=== PATIENT | male | born 1960 | race Hispanic/Latino ===

== ENCOUNTER 2016-10-13 22:41 | Inpatient (IN) | payer MEDICARE, OTHER ==
[2016-10-13] MEDS ORDERED: Sodium Chloride 0.9% 1,000 ML IV ONE (22:54)
[2016-10-13 23:00] LABS: ABG ALLEN TEST POS; ABG MECHANICAL RATE 16; ARTERIAL BLOOD HGB O2 SAT 95.9 % (95.0-98.0); ATERIAL BLOOD GAS PEEP 5; CARBOXYHEMOGLOBIN 1.7 % (0.5-1.5); DRAW SITE RBA; HHB 1.6 % (0.0-5.0); METHEMOGLOBIN 0.7 % (0.0-3.0)
[2016-10-13 23:05] LABS: BASO # 0.1 K/uL (0.0-0.2); BASO % 0.4 % (0.0-2.0); EOS # 0.1 K/uL (0.0-0.7); EOS % 0.4 % (0.0-4.0); HEMATOCRIT 26.1 % (35.0-51.0); LYMPH # 1.3 K/uL (1.0-4.3); LYMPH % 6.3 % (20.0-40.0); MEAN CELL VOLUME 93.3 fL (80.0-94.0); MEAN CORPUSCULAR HEMOGLOBIN 27.4 pg (27.0-31.0); MEAN CORPUSCULAR HGB CONC 29.4 g/dL (33.0-37.0); MEAN PLATELET VOLUME 7.5 fL (7.2-11.7); MONO # 0.1 K/uL (0.0-0.8); MONO % 0.6 % (0.0-10.0); PLATELET COUNT 229 K/uL (130-400); RED CELL DISTRIBUTION WIDTH 19.7 % (11.5-14.5)
[2016-10-13 23:13] LABS: INR 1.6
[2016-10-13 23:24] LABS: CHLORIDE 98 mmol/L (98-107)
[2016-10-13 23:25] LABS: POTASSIUM 4.2 mmol/L (3.6-5.2); SODIUM 137 mmol/L (132-148)
[2016-10-13 23:27] LABS: ALB/GLOB RATIO 0.6 (1.0-2.1); ALKALINE PHOSPHATASE 165 U/L (38-126); ALT/SGPT 25 U/L (21-72); AST/SGOT 61 U/L (17-59); BILIRUBIN,TOTAL 0.7 mg/dL (0.2-1.3); BLOOD UREA NITROGEN 59 mg/dL (9-20); CARBON DIOXIDE 17 mmol/L (22-30); GFR AFRICAN-AMERICAN 11; GLUCOSE,RANDOM 85 mg/dL (75-110); TOTAL PROTEIN 5.9 g/dL (6.3-8.3)
[2016-10-13 23:34] LABS: METAMYELOCYTE 1 % (0-0); MYELOCYTE 2 % (0-0); NEUTROPHIL 61 % (50-75); TOTAL CELLS COUNTED 100
[2016-10-13] MEDS ORDERED: Piperacillin/Tazobact 3.375 gm 100 ML IV STA (23:40)
[2016-10-13 23:48] LABS: CHOLESTEROL < 50 mg/dL (0-199)
--- NOTE | 2016-10-13 23:49 | C.PDOC ---
History Of Present Illness 56 y/o male presents to ER via ALS from the [facility] status post cardiac arrest. Patient with history of septic foot (R > L), planning amputation with Dr. Clement. Pt found by [facility] staff unresponsive after fall, asystolic. CPR performed for 15 mins by [facility] staff. ALS arrived, following protocols, regained stable rhythm without shocking. In ER patient unconscious, unresponsive, and pale, with ET tube in place. Chief Complaint (Nursing): Cardiac Arrest History Per: EMS Reason For Code Blue: Full Arrest Circumstances: Brought To ED By EMS Arrest Witnessed By: Other ([facility] staff) CPR Initiated Prior To MD Arrival?: Yes Down-Time Before ACLS: Mins (15) Treatment Initiated Prior To MD Arrival: Yes: CPR, Intubation, ACLS Medication Initiation - Initial Findings Mentation: Unresponsive Pulse: None Past Medical History Reviewed: Historical Data, Nursing Documentation, Vital Signs Vital Signs: Last Vital Signs Temp 97.7 F 10/14/16 23:00 Pulse 48 L 10/14/16 23:50 Resp 0 L 10/15/16 00:10 BP 64/29 L 10/14/16 23:43 Pulse Ox 39 L 10/14/16 23:50 - Medical History PMH: HTN, End Stage Renal Disease Surgical History: CABG - [facility] Procedures DIALYSIS ARTERIOVENOSTOM (03/16/13) INSERTION OF ENDOTRACHEAL AIRWAY INTO TRACHEA, VIA OPENING (10/13/16) RESPIRATORY VENTILATION, 24-96 CONSECUTIVE HOURS (10/13/16) Family History: States: Unknown Family Hx - Social History Hx Alcohol Use: No Hx Substance Use: No - Immunization History Hx Tetanus Toxoid Vaccination: No Hx Influenza Vaccination: No Hx Pneumococcal Vaccination: No Review Of Systems Review Of Systems: ROS cannot be obtained secondary to pt's inabilty to answer questions. Physical Exam - Physical Exam Appears: Other (unconscious, unresponsive) Skin: Warm, Dry, Pale, Mottled Head: Atraumatic Eye(s): bilateral: Other (fixated pupils) Chest: Symmetrical, Other (contusion and bleeding of the sternum, probably related to Yared device and compressions) Cardiovascular: Rhythm Regular Respiratory: No Rales, No Rhonchi, No Wheezing, Other (ET tube, 7.0 at 22cm at lips, good lung sounds bilaterally) Gastrointestinal/Abdominal: Soft, No Distention Extremity: Other (Lower extremities: healed surgical scars. Bilateral feet: large, gaping, foul-smelling wounds. ) ED Course And Treatment - Laboratory Results Result Diagrams: 10/14/16 21:24 10/14/16 21:24 Lab Interpretation: Abnormal (+ bandemia, ABG acidotic) ECG: Interpreted By Me ECG Rhythm: Sinus Rhythm ECG Interpretation: Normal Rate From EC O2 Sat by Pulse Oximetry: 100 Pulse Ox Interpretation: Normal - Radiology CXR: Interpreted by Me CXR Interpretation: Yes: Infiltrates (RUL/RLL pna vs contusions from CPR, good ET tube, R subclavian central line.) - CT Scan/US CT Head Other Rad Studies (CT/US): Read By Radiologist, Radiology Report Reviewed CT/US Interpretation: IMPRESSION: Status post craniectomy with underlying encephalomalacia. Please correlate with history, this study. does not exclude mass noting extensive edema in this area, cannot exclude further that some of this. edema may be related to the present acute trauma. Anasarca, and noting specifically diffuse edema of the bilateral intraconal fat. Nasal fractures with no evident fracture of the calvarium or orbits Reevaluation Time: 23:46 (deterioating BP, acidotic, vanco/zosyn and Levophed started, planning mckay scan, ventilatory resp rate increased) - Physician Consult Information Outcome Of Conversation: [id number]: d/w Dr. Warren- PMD- ok to ICU. 2300: d/w Dr. Kuhn- ICU Attending-@ bedside. ok to ICU Medical Decision Making Medical Decision Making: sepsis, probably from R>L foot infections. now s/p cardiac arrest, lung contusions, b/l foot infections intubated on pressors/broad spectrum ABX, to ICU HIGH risk of mortality Disposition Doctor Will See Patient In The: Hospital Counseled Patient/Family Regarding: Studies Performed, Diagnosis - Disposition Disposition: HOSPITALIZED Disposition Time: 23:49 Condition: CRITICAL - Clinical Impression Clinical Impression: Cardiac arrest, Sepsis Critical Care Time - Critical Care Note Total Time (in mins): 90 Documented critical care: time excludes all time spent performing seperately billable procedures. - Scribe Statement The provider has reviewed the documentation as recorded by the Frances Ledezma Provider Scribe Attestation: All medical record entries made by the Scribe were at my direction and personally dictated by me. I have reviewed the chart and agree that the record accurately reflects my personal performance of the history, physical exam, medical decision making, and the department course for this patient. I have also personally directed, reviewed, and agree with the discharge instructions and disposition.
--- NOTE | 2016-10-14 00:20 | CP.PCM.CON ---
History of Present Illness - History of Present Illness History of Present Illness: 56 M form [place], ESRD on HD MWF, CAD s/p CABG, lt arm av fistula, right permacath, PAD with infected right charcot foot, left foot unstageble eschar, IDDM, arrested at [place], was seen about a min prior to arrest at [place]. About 15 min of CPR at [facility], 2-3 time arrest on the route, needing 6 epinephrine. In ER breathing over vent, no cornea/conjuctival reflex, metabolic acidosis, rul infilterate, intially normotensive then hypotensive, liquid diarrhea noticed. EKG old anterio -septal infarct. As per [place] transfer sheet was alert and oriented, could feed himself, difficulty in ambulation, due to feet infection. PMH as above PSH as above Meds reviewed insulin 3utid, coreg, zemplar, percocet, oxycodone, prn lactulose , procirt, diflucan abx not listed but possible during hd Allergies not listed Family history not available Social from [place], details not available Review of Systems - Review of Systems All systems: reviewed and no additional remarkable complaints except (HPI) Past Patient History - Infectious Disease Hx of Infectious Diseases: None - Past Social History Smoking Status: Unknown If Ever Smoked - CARDIAC Hx Hypertension: Yes - RENAL Hx Dialysis: Yes Type of Dialysis Access: left AV shunt Date of Last Dialysis Treatment: 10/04/16 - ENDOCRINE/METABOLIC Hx Diabetes Mellitus Type 1: Yes - MUSCULOSKELETAL/RHEUMATOLOGICAL Hx Osteomyelitis: Yes - PSYCHIATRIC Hx Substance Use: No - SURGICAL HISTORY Hx Coronary Artery Bypass Graft: Yes - ANESTHESIA Hx Anesthesia: Yes Hx Anesthesia Reactions: No Meds Allergies/Adverse Reactions: Allergies Allergy/AdvReac Type Severity Reaction Status Date / Time No Known Allergies Allergy Verified 10/13/16 22:58 - Medications Medications: Current Medications Norepinephrine Bitartrate 8 mg (/ Sodium Chloride) 258 mls @ 7.74 mls/hr IV .Q24H STA; 4 MCG/MIN PRN Reason: Protocol Stop: 10/14/16 23:34 Piperacillin Sod/Tazobactam Sod (Zosyn 3.375 In Ns 100ml) 100 mls @ 200 mls/hr IV STAT STA Stop: 10/14/16 00:09 Vancomycin HCl (Vancomycin 1gm In Normal Saline Addvantage) 250 mls @ 166.667 mls/hr IV STAT INGA Physical Exam - Additional Findings Additional findings: * HEENT no trauma, pupils fixed, no corneal/ conjuctival reflex, ET tube * Neck Supple * Chest breathing over vent 28/20, a/e b/l, right permacath * CVS Regular sinus, no murmur, midline scar * PA mild distension, soft, sub cut hematoma in luq noticed * Ext scar or previous baron, bleeding/oozing, wet gangrenous right foot planter aspect, with lax charcot ankle without support * left heal unstagable eschar * SYNTHET[employer] P[employer]ER breathing over vent, unresponsive, no puplilary/corneal reflex * Skin normal turgor Results - Vital Signs Recent Vital Signs: Last Vital Signs Temp 95 F L 10/13/16 23:05 Pulse 72 10/13/16 23:36 Resp 22 10/13/16 23:36 BP 88/56 L 10/13/16 23:36 Pulse Ox 100 10/13/16 23:56 - Labs Result Diagrams: 10/13/16 00:09 10/13/16 22:54 Labs: Laboratory Results - last 24 hr 10/13/16 10/13/16 10/13/16 00:09 00:09 22:48 WBC 21.0 H RBC 2.80 L Hgb 7.7 L Hct 26.1 L MCV 93.3 MCH 27.4 MCHC 29.4 L RDW 19.7 H Plt Count 229 MPV 7.5 Neut % (Auto) 92.3 H Lymph % (Auto) 6.3 L [place] % (Auto) 0.6 Eos % (Auto) 0.4 Baso % (Auto) 0.4 Neut # 19.3 H Lymph # 1.3 [place] # 0.1 Eos # 0.1 Baso # 0.1 Neutrophils % (Manual) 61 Band Neutrophils % 26 H* Lymphocytes % (Manual) 8 L Monocytes % (Manual) 2 Metamyelocytes % 1 H Myelocytes % 2 H Platelet Estimate Normal Hypochromasia (manual) Slight Poikilocytosis (manual Slight Anisocytosis (manual) Slight Jannet Cells Slight PT 17.8 H INR 1.6 APTT 47 H Puncture Site pCO2 pO2 HCO3 ABG pH ABG Total CO2 ABG O2 Saturation ABG Base Excess ABG Hemoglobin ABG Carboxyhemoglobin POC ABG HHb (Measured) ABG Methemoglobin Eusebio Test A-a O2 Difference Respiratory Index Hgb O2 Saturation Mechanical Rate FiO2 Tidal Volume PEEP Crit Value Called To Crit Value Called By Crit Value Read Back Blood Gas Notified Time Sodium Potassium Chloride Carbon Dioxide Anion Gap BUN Creatinine Est GFR ( Amer) Est GFR (Non-Af Amer) POC Glucose (mg/dL) 88 Random Glucose Calcium Total Bilirubin AST ALT Alkaline Phosphatase Total Creatine Kinase CK-MB (Mass) Troponin I Troponin I, Quant Total Protein Albumin Globulin Albumin/Globulin Ratio Triglycerides Cholesterol LDL Cholesterol Direct HDL Cholesterol Blood Type Antibody Screen 10/13/16 10/13/16 10/13/16 22:54 22:55 23:01 WBC RBC Hgb Hct MCV MCH MCHC RDW Plt Count MPV Neut % (Auto) Lymph % (Auto) [place] % (Auto) Eos % (Auto) Baso % (Auto) Neut # Lymph # [place] # Eos # Baso # Neutrophils % (Manual) Band Neutrophils % Lymphocytes % (Manual) Monocytes % (Manual) Metamyelocytes % Myelocytes % Platelet Estimate Hypochromasia (manual) Poikilocytosis (manual Anisocytosis (manual) Jannet Cells PT INR APTT Puncture Site Rba pCO2 59 H pO2 247 H HCO3 12.1 L ABG pH 6.99 L* ABG Total CO2 16.0 L ABG O2 Saturation 98.4 H ABG Base Excess -16.4 L ABG Hemoglobin 8.0 L ABG Carboxyhemoglobin 1.7 H POC ABG HHb (Measured) 1.6 ABG Methemoglobin 0.7 Eusebio Test Pos A-a O2 Difference 392.0 Respiratory Index 1.6 Hgb O2 Saturation 95.9 Mechanical Rate 16 FiO2 100.0 Tidal Volume 500 PEEP 5 Crit Value Called To Dr bateman Crit Value Called By [facility] [place] Crit Value Read Back Y Blood Gas Notified Time 2300 Sodium 137 Potassium 4.2 Chloride 98 Carbon Dioxide 17 L Anion Gap 26 H BUN 59 H Creatinine 6.6 H Est GFR ( Amer) 11 Est GFR (Non-Af Amer) 9 POC Glucose (mg/dL) Random Glucose 85 Calcium 8.0 L Total Bilirubin 0.7 AST 61 H ALT 25 Alkaline Phosphatase 165 H Total Creatine Kinase 34 L CK-MB (Mass) 4.31 H Troponin I < 0.0120 Troponin I, Quant < 0.0120 Total Protein 5.9 L Albumin 2.3 L Globulin 3.7 Albumin/Globulin Ratio 0.6 L Triglycerides 56 Cholesterol < 50 LDL Cholesterol Direct < 30 HDL Cholesterol 14 L Blood Type O POSITIVE Antibody Screen Negative Assessment & Plan - Assessment and Plan (Free Text) Assessment: * Cardiac arrest at [place], clinically signs of anoxia, unclear etiology * ESRD on HD MWF * CAD, CABG, PAD * Infected right heal wet gangrene vs om, vs soft tissue infn, charcot joint, left unstagable eschar * RUL pna * Hypotensive being bolused * Anemia of chronic disease/ESRD Plan: * [facility] * If no internal bleeding contraindications then hypothermia as tolerated * Broad spectrum abx * HD * Monitoring and correcting electrolyte abnormalitied * GI/DVT prophylaxis * See orders for detail.
[2016-10-14] MEDS ORDERED: Piperacillin/Tazobact 3.375 gm 100 ML IVPB ONE (00:25)
--- NOTE | 2016-10-14 01:27 | CT ---
EXAM: CT Head Without Intravenous Contrast CLINICAL HISTORY: 56 years old, male; Injury or trauma; Fall; Initial encounter; Blunt trauma (contusions or hematomas); Consciousness not specified; Additional info: Fall, cardiac arrest TECHNIQUE: Axial computed tomography images of the head/brain without intravenous contrast. This CT exam was performed using one or more of the following dose reduction techniques: automated exposure control, adjustment of the mA and/or kV according to patient size, and/or use of iterative reconstruction technique. Coronal and sagittal reformatted images were created and reviewed. EXAM DATE/TIME: Exam ordered 10/13/2016 10:55 PM COMPARISON: No relevant prior studies available. FINDINGS: Brain: There is a defect in the left high parietal region series 4 image 58 favored to be a craniotomy/craniectomy site, see for example coronal image 202 and noting underlying encephalomalacia. There is prominent encephalomalacia adjacent to the described bony defect and which may reflect prior procedure with additional abnormality such as mass or post traumatic change in this area not excluded on the present study. No hemorrhage. Noting extensive white matter changes, cannot exclude either chronic or acute edema in this area. Lacunar infarct left basal ganglia. Noting history of cardiac arrest there are no specific findings that would confirm acute anoxic injury. Ventricles: Unremarkable. No ventriculomegaly. Bones/joints: Comminuted fractures of the right nasal bone. The zygomatic arches intact. This study does not evaluate the cervical spine. There are no findings of acute orbital fracture. Included portions of the mandible show no fractures. Soft tissues: There is extracranial soft tissue swelling at the vertex. There is bilaterally increased attenuation of the intraconal fat of the orbits, this is symmetric, close clinical correlation is recommended. This may be related to the overall severe soft tissue swelling and anasarca.There is marked diffuse edema of the extracranial soft tissues, noting further vascular calcifications some of which may be venous rather than arterial, and noting in addition bilateral diffuse edema affecting also the intraconal fat. Vasculature: heavy atherosclerosis of the vertebral and internal carotid arteries. There is marked diffuse edema of the extracranial soft tissues, noting further vascular calcifications some of which may be venous rather than arterial, and noting in addition bilateral diffuse edema affecting the intraconal fat. Sinuses: Small amount of mucoperiosteal thickening in the bilateral maxillary sinuses. Mastoid air cells: Mastoid air cells are clear. Other findings: Patient is intubated. IMPRESSION: Status post craniectomy with underlying encephalomalacia. Please correlate with history, this study does not exclude mass noting extensive edema in this area, cannot exclude further that some of this edema may be related to the present acute trauma. Anasarca, and noting specifically diffuse edema of the bilateral intraconal fat. Nasal fractures with no evident fracture of the calvarium or orbits.
--- NOTE | 2016-10-14 01:51 | CT ---
EXAM: CT Chest Without Intravenous Contrast CLINICAL HISTORY: 56 years old, male; Injury or trauma; Injury Post cpr, cardiac arrest; Initial encounter; Blunt; Generalized; Blunt trauma (contusions or hematomas); Additional info: Cpr, sepsis, TECHNIQUE: Axial computed tomography images of the chest without intravenous contrast. This CT exam was performed using one or more of the following dose reduction techniques: automated exposure control, adjustment of the mA and/or kV according to patient size, and/or use of iterative reconstruction technique. Coronal and sagittal reformatted images were created and reviewed. COMPARISON: No relevant prior studies available. FINDINGS: Limitations: Other procedure is not excluded on this extremely limited study. Lungs: There is extensive airspace disease with numerous air bronchograms as well as additional areas of fluffy centrilobular air space opacity, in keeping with extensive pneumonia. Findings are most confluent in the right upper lobe, with additional airspace pathology in the right middle lobe and lingula, noting that findings in the right lower lobe are partly related to compressive atelectasis from the pleural space pathology. The left lower lobe is relatively free of acute pneumonia. Pleural space: There is a small left pleural effusion. In the right pleural space, there is a large loculated collection with a relatively small loculated hydropneumothorax but with extensive bubbles of air seen in keeping with acute infection. It is noted that this is not absolutely from the underlying lung and communication with the bronchial tree is not absolutely excluded.This finding measures approximately 4.2 cm in greatest thickness, as seen for example sagittal image 63 this measures approximately 10-11 cm in cephalocaudal extent. Heart: There is severe cardiomegaly. Patient is status post coronary artery bypass graft. Extensive coronary artery calcifications. Do not favor that there is significant pericardial effusion. Series 3 image 38 cannot exclude trace pericardial air Bones/joints: Please note the right upper extremity is partially included and there appears to have been previous internal fixation at the right olecranon. As seen series 4 image 66 there are fractures of the bilateral fifth anterior ribs. Fractures of the right sixth anterior rib. No dislocation. Soft tissues: Status post sternotomy noting nonunion of the sternum. Sternal wound infection is not excluded. There is separation of the sides of the sternum. Vasculature: cannot evaluate for acute aortic pathology. Please correlate whether there has been a history of procedures to the aorta. Lymph nodes: There is severe diffuse edema of the mediastinal fat, this precludes evaluation for adenopathy. Other findings: This finding measures approximately 4.2 cm in greatest thickness, as seen for example sagittal image 63 this measures approximately 10-11 cm in cephalocaudal extent. Severe diffuse anasarca. IMPRESSION: Extensive pneumonia as above with a large loculated right hydropneumothorax as detailed with numerous bubbles of air and strongly favored that this infection is present in the right pleural space with likely extension to the adjacent lung. Anasarca. Cannot exclude acute aortic or mediastinal pathology. Sternal nonunion, cannot exclude infection. Rib fractures EXAM: CT Abdomen Without Intravenous Contrast CLINICAL HISTORY: 56 years old, male; Injury or trauma; Injury Post cpr, cardiac arrest; Initial encounter; Blunt; Generalized; Blunt trauma (contusions or hematomas); Additional info: Cpr, sepsis, TECHNIQUE: Axial computed tomography images of the abdomen without intravenous contrast. This CT exam was performed using one or more of the following dose reduction techniques: automated exposure control, adjustment of the mA and/or kV according to patient size, and/or use of iterative reconstruction technique. Coronal and sagittal reformatted images were created and reviewed. EXAM DATE/TIME: Exam ordered 10/13/2016 11:33 PM COMPARISON: No relevant prior studies available. FINDINGS: Limitations: The study is limited by the absence of contrast and by anasarca. Lower thorax: Please refer to separate CT of the thorax. Liver: The liver is increased in attenuation, please correlate with medications, this may sometimes be seen with amiodarone toxicity. Gallbladder and bile ducts: Unremarkable. No calcified stones. No ductal dilation. Pancreas: The study is very limited and does not appropriately evaluate the pancreas. Spleen: Unremarkable. No splenomegaly. Adrenals: Limited evaluation adrenals favored to be without mass lesion. Kidneys and ureters: Hypoattenuating findings too small to characterize in the bilateral kidneys. No obstructing stones. No hydronephrosis. Stomach and bowel: The stomach is grossly distended. There is a small amount of air and formed fecal material in the large intestine. Within limits of the study there is no definite pathologic small bowel dilatation. No mucosal thickening. Appendix: Cannot evaluate. Intraperitoneal space: Evaluation for free air is extremely limited noting poor delineation of bowel, definite free air is not seen but is deemed not excluded. No significant fluid collection. Bones/joints: Please note this study does not extend as far distal as the pubic symphysis. No acute fracture. No dislocation. Soft tissues: anasarca, see above Vasculature: There is severe extensive atherosclerosis. No abdominal aortic aneurysm. Please correlate whether there are stents present, noting the appearance may be related to the severe extensive atherosclerosis. Lymph nodes: Cannot evaluate Other findings: No previous. There is severe diffuse anasarca. The study does not extend through the entire pelvis and the bladder and prostate are not identified, please correlate also with surgical history. IMPRESSION: Extremely limited study. There is no definite free air in the abdomen. This study is not adequate to exclude acute abdominal pathology. Laboratory correlation advised noting in particular severe extensive atherosclerotic change. Liver as above please correlate with medications. The absence of oral and intravenous contrast greatly limits evaluation of the parenchymal organs and of the GI tract.
[2016-10-14] MEDS: White Petrolatum/Mineral Oil Ophth Oint(3.5 gm) OU SCH ×4 (02:00→18:02)
[2016-10-14] MEDS ORDERED: Acetaminophen 650mg/20.3ml solution UD NG PRN (02:24)
[2016-10-14 02:34] LABS: VENOUS BLOOD GAS BASE EXCESS -2.4 mmol/L (0.0-2.0); VENOUS BLOOD GAS PCO2 42 mmHg (40-60); VENOUS BLOOD PH 7.35 (7.32-7.43)
[2016-10-14 03:27] LABS: BASO # 0.1 K/uL (0.0-0.2); BASO % 0.6 % (0.0-2.0); HEMATOCRIT 24.1 % (35.0-51.0); LYMPH # 0.1 K/uL (1.0-4.3); LYMPH % 1.2 % (20.0-40.0); MEAN CELL VOLUME 87.5 fL (80.0-94.0); MEAN CORPUSCULAR HEMOGLOBIN 27.4 pg (27.0-31.0); MEAN CORPUSCULAR HGB CONC 31.4 g/dL (33.0-37.0); MEAN PLATELET VOLUME 7.2 fL (7.2-11.7); MONO # 0.1 K/uL (0.0-0.8); MONO % 1.2 % (0.0-10.0); PLATELET COUNT 156 K/uL (130-400); RED CELL DISTRIBUTION WIDTH 18.2 % (11.5-14.5); WHITE BLOOD COUNT 11.8 K/uL (4.8-10.8)
[2016-10-14 03:42] LABS: POTASSIUM 4.8 mmol/L (3.6-5.2)
[2016-10-14 03:44] LABS: ALB/GLOB RATIO 0.6 (1.0-2.1); BILIRUBIN,TOTAL 0.9 mg/dL (0.2-1.3); PHOSPHOROUS 7.9 mg/dL (2.5-4.5); TOTAL PROTEIN 6.2 g/dL (6.3-8.3)
[2016-10-14 03:45] LABS: CALCIUM 7.4 mg/dl (8.6-10.4); MAGNESIUM 2.2 mg/dL (1.6-2.3)
[2016-10-14 03:50] LABS: NEUTROPHIL 88 % (50-75); TOTAL CELLS COUNTED 100
[2016-10-14 05:07] LABS: INR 1.6
[2016-10-14 05:56] LABS: ABG MECHANICAL RATE 22; ARTERIAL BLOOD HGB O2 SAT 92.2 % (95.0-98.0); ATERIAL BLOOD GAS PEEP 5; CARBOXYHEMOGLOBIN 1.5 % (0.5-1.5); DRAW SITE RB; HHB 5.9 % (0.0-5.0); METHEMOGLOBIN 0.4 % (0.0-3.0)
[2016-10-14] MEDS: Piperacillin/Tazobact 2.25 GM in Sodium Chloride 100 ML IVPB SCH ×2 (06:54→15:54)
--- NOTE | 2016-10-14 08:58 | RAD ---
HISTORY: follow up cardiac arrest COMPARISON: 10/13/2016 FINDINGS: LUNGS: Persistent extensive opacity in right upper lobe/ apex. Persistent opacity at right base. No left-sided pulmonary opacity. PLEURA: Possible trace right pleural effusion. No pneumothorax. No left pleural effusion. CARDIOVASCULAR: Normal heart size. CABG. ET tube, NG tube and right subclavian central venous catheter noted. NG tube is new since prior examination and is appropriately positioned extending beneath the diaphragm. ET tube and right subclavian central venous catheter are unchanged. OSSEOUS STRUCTURES: No significant abnormalities. VISUALIZED UPPER ABDOMEN: Normal. OTHER FINDINGS: None. IMPRESSION: Persistent extensive opacity right upper lobe and persistent opacity at right base. Possible minimal right pleural effusion. New nasogastric tube, appropriately positioned.
--- NOTE | 2016-10-14 09:26 | RAD ---
HISTORY: adm COMPARISON: No prior. FINDINGS: LUNGS: Extensive confluent right upper lobe opacity. Patchy opacity at right lung base. PLEURA: Small right pleural effusion. No left pleural effusion. Curvilinear opacity at right lateral lung base may reflect pneumothorax/hydro pneumothorax. CARDIOVASCULAR: CABG. ET tube appropriately positioned above the tracheal jonathan. Right subclavian central venous catheter. Normal heart size. OSSEOUS STRUCTURES: No significant abnormalities. VISUALIZED UPPER ABDOMEN: Normal. OTHER FINDINGS: None. IMPRESSION: Extensive right upper lobe opacity. Patchy right basilar opacity. Possible small right pneumothorax/ hydro pneumothorax. ET tube and right subclavian central venous catheter noted.
[2016-10-14 10:02] LABS: BASO % 0.5 % (0.0-2.0); EOS % 0.3 % (0.0-4.0); LYMPH # 0.1 K/uL (1.0-4.3); MEAN CELL VOLUME 87.4 fL (80.0-94.0); MEAN CORPUSCULAR HEMOGLOBIN 26.9 pg (27.0-31.0); MEAN CORPUSCULAR HGB CONC 30.7 g/dL (33.0-37.0); MEAN PLATELET VOLUME 7.6 fL (7.2-11.7); MONO # 0.1 K/uL (0.0-0.8); MONO % 1.3 % (0.0-10.0); NRBC % 0.1 % (0.0-2.0); PLATELET COUNT 135 K/uL (130-400)
[2016-10-14 10:04] LABS: INR 1.8; WHITE BLOOD COUNT 5.1 K/uL (4.8-10.8)
[2016-10-14 10:05] LABS: POTASSIUM 4.6 mmol/L (3.6-5.2)
[2016-10-14 10:08] LABS: CALCIUM 7.1 mg/dl (8.6-10.4); MAGNESIUM 2.1 mg/dL (1.6-2.3)
--- NOTE | 2016-10-14 10:50 | CP.CCUPN ---
CCU Subjective - Physician Review Subjective (Free Text): 10/14/16 10:46 PGY-1 progress note Pt seen and examined at bedside on morning rounds. Pt will need palliative and bioethics eval as pt has no known family or person with medical decision making authority. Nephro to be consulted for possible need for HD. Code freeze initiated. Metabolic acidosis corrected on vent. Will continue to monitor electrolytes. Pt still without corneal reflex, has a positive cough reflex. Critical Care Time Spent (in minutes): 35 CCU Objective - Vital Signs / Intake & Output Vital Signs (Last 4 hours): Vital Signs Temp Pulse Resp BP Pulse Ox 10/14/16 09:30 63 26 H 98 10/14/16 09:20 64 26 H 98 10/14/16 09:15 65 26 H 117/71 98 10/14/16 09:10 65 26 H 97 10/14/16 09:00 91.5 F L 67 24 108/67 97 10/14/16 08:50 66 16 97 10/14/16 08:45 62 16 132/63 98 10/14/16 08:40 62 23 98 10/14/16 08:30 61 21 99 10/14/16 08:20 64 19 99 10/14/16 08:15 59 L 25 H 124/65 99 10/14/16 08:00 91.8 F L 61 24 124/65 10/14/16 07:30 65 24 97 10/14/16 07:00 95.8 F L 60 21 94/53 L 98 Intake and Output (Last 8hrs): Intake & Output 10/13/16 10/14/16 10/14/16 22:59 06:59 14:59 Intake Total 45.1 15.1 Output Total 300 Balance -254.9 15.1 Weight 152 lb 9 oz Intake: Intake, IV Amount 45.1 15.1 Right PICC 45.1 15.1 Output: Gastric Amount 300 Stomach 300 - Physical Exam Head: Positive for: Atraumatic, Normocephalic Pupils: Positive for: Non-Reactive Conjunctiva: Positive for: Normal Mouth: Positive for: Moist Mucous Membranes Respiratory/Chest: Positive for: Good Air Exchange, Other (on vent) Cardiovascular: Positive for: Normal S1, S2 Abdomen: Positive for: Normal Bowel Sounds. Negative for: Distention - Medications Active Medications: Active Medications Generic Name Dose Route Start Last Admin Trade Name Freq PRN Reason Stop Dose Admin Acetaminophen 325 mg 10/14/16 02:24 Tylenol 650mg/20.3ml Solution Ud NG Q6 PRN Rigors Artificial Tears 1 gm 10/14/16 04:00 10/14/16 08:36 Lacri-Lube OU 1 gm Q4 INGA Administration Heparin Sodium (Porcine) 5,000 units 10/14/16 14:00 Heparin SC Q8 INGA Norepinephrine Bitartrate 8 mg 258 mls @ 7.74 mls/hr 10/13/16 23:35 10/14/16 05:00 / Sodium Chloride IV 10/14/16 23:34 2 mcg/min .Q24H STA 3.87 mls/hr Protocol Administration 4 MCG/MIN Vancomycin HCl 250 mls @ 166.667 mls/hr 10/13/16 23:45 Vancomycin 1gm In Normal Saline Addvantage IV STAT INGA Piperacillin Sod/Tazobactam 100 mls @ 200 mls/hr 10/14/16 07:30 10/14/16 06: 54 Sod 2.25 gm/ Sodium Chloride IVPB 200 mls/hr Q8H INGA Administration Meperidine HCl 25 mg 10/14/16 02:24 Demerol IVP Q30M PRN Rigors Pantoprazole Sodium 40 mg 10/14/16 10:00 10/14/16 10:06 Protonix Inj IVP 40 mg DAILY INAG Administration - Patient Studies Lab Studies: Microbiology Studies 10/14/16 06:00 Gram Stain - Final Trachasp Lab Studies 10/14/16 10/14/16 10/14/16 Range/Units 09:44 09:44 09:44 WBC 5.1 D (4.8-10.8) K/uL RBC 2.63 L (4.40-5.90) Mil/uL Hgb 7.1 L (12.0-18.0) g/dL Hct 23.0 L (35.0-51.0) % MCV 87.4 (80.0-94.0) fL MCH 26.9 L (27.0-31.0) pg MCHC 30.7 L (33.0-37.0) g/dL RDW 19.0 H (11.5-14.5) % Plt Count 135 (130-400) K/uL MPV 7.6 (7.2-11.7) fL Neut % (Auto) 95.9 H (50.0-75.0) % Lymph % (Auto) 2.0 L (20.0-40.0) % [place] % (Auto) 1.3 (0.0-10.0) % Eos % (Auto) 0.3 (0.0-4.0) % Baso % (Auto) 0.5 (0.0-2.0) % Neut # 4.9 (1.8-7.0) K/uL Lymph # 0.1 L (1.0-4.3) K/uL [place] # 0.1 (0.0-0.8) K/uL Eos # 0.0 (0.0-0.7) K/uL Baso # 0.0 (0.0-0.2) K/uL Neutrophils % (Manual) (50-75) % Band Neutrophils % (0-2) % Lymphocytes % (Manual) (20-40) % Monocytes % (Manual) (0-10) % Platelet Estimate (NORMAL) Poikilocytosis (manual Anisocytosis (manual) PT 20.6 H (9.7-12.2) SECONDS INR 1.8 APTT 39 H (21-34) SECONDS Puncture Site pCO2 (35-45) mm/Hg pO2 (30-55) mm/Hg HCO3 (21-28) mmol/L ABG pH (7.35-7.45) ABG Total CO2 (22-28) mmol/L ABG O2 Saturation (95-98) % ABG Base Excess (-2.0-3.0) mmol/L ABG Hemoglobin (11.7-17.4) g/dL ABG Carboxyhemoglobin (0.5-1.5) % POC ABG HHb (Measured) (0.0-5.0) % ABG Methemoglobin (0.0-3.0) % Eusebio Test VBG pH (7.32-7.43) VBG pCO2 (40-60) mmHg VBG HCO3 mmol/L VBG O2 Sat (Calc) (40-65) % VBG Base Excess (0.0-2.0) mmol/L A-a O2 Difference mm/Hg Respiratory Index Hgb O2 Saturation (95.0-98.0) % Mechanical Rate FiO2 % Tidal Volume PEEP Sodium 136 (132-148) mmol/L Potassium 4.6 (3.6-5.2) mmol/L Chloride 97 L (98-107) mmol/L Carbon Dioxide 22 (22-30) mmol/L Anion Gap 22 H (10-20) BUN 69 H (9-20) mg/dL Creatinine 6.4 H (0.8-1.5) MG/DL Est GFR ( Amer) 11 Est GFR (Non-Af Amer) 9 POC Glucose (mg/dL) (65-110) mg/dL Random Glucose 116 H (75-110) mg/dL Lactic Acid (0.7-2.1) mmol/L Calcium 7.1 L (8.6-10.4) mg/dl Phosphorus (2.5-4.5) mg/dL Magnesium 2.1 (1.6-2.3) mg/dL Total Bilirubin (0.2-1.3) mg/dL AST (17-59) U/L ALT (21-72) U/L Alkaline Phosphatase (38-126) U/L Total Protein (6.3-8.3) g/dL Albumin (3.5-5.0) g/dL Globulin (2.2-3.9) gm/dL Albumin/Globulin Ratio (1.0-2.1) 10/14/16 10/14/16 10/14/16 Range/Units 05:52 03:23 03:23 WBC (4.8-10.8) K/uL RBC (4.40-5.90) Mil/uL Hgb (12.0-18.0) g/dL Hct (35.0-51.0) % MCV (80.0-94.0) fL MCH (27.0-31.0) pg MCHC (33.0-37.0) g/dL RDW (11.5-14.5) % Plt Count (130-400) K/uL MPV (7.2-11.7) fL Neut % (Auto) (50.0-75.0) % Lymph % (Auto) (20.0-40.0) % [place] % (Auto) (0.0-10.0) % Eos % (Auto) (0.0-4.0) % Baso % (Auto) (0.0-2.0) % Neut # (1.8-7.0) K/uL Lymph # (1.0-4.3) K/uL [place] # (0.0-0.8) K/uL Eos # (0.0-0.7) K/uL Baso # (0.0-0.2) K/uL Neutrophils % (Manual) (50-75) % Band Neutrophils % (0-2) % Lymphocytes % (Manual) (20-40) % Monocytes % (Manual) (0-10) % Platelet Estimate (NORMAL) Poikilocytosis (manual Anisocytosis (manual) PT (9.7-12.2) SECONDS INR APTT (21-34) SECONDS Puncture Site Rb pCO2 39 (35-45) mm/Hg pO2 71 L (30-55) mm/Hg HCO3 22.3 (21-28) mmol/L ABG pH 7.36 (7.35-7.45) ABG Total CO2 23.2 (22-28) mmol/L ABG O2 Saturation 94.0 L (95-98) % ABG Base Excess -3.2 L (-2.0-3.0) mmol/L ABG Hemoglobin 12.0 (11.7-17.4) g/dL ABG Carboxyhemoglobin 1.5 (0.5-1.5) % POC ABG HHb (Measured) 5.9 H (0.0-5.0) % ABG Methemoglobin 0.4 (0.0-3.0) % Eusebio Test Na VBG pH (7.32-7.43) VBG pCO2 (40-60) mmHg VBG HCO3 mmol/L VBG O2 Sat (Calc) (40-65) % VBG Base Excess (0.0-2.0) mmol/L A-a O2 Difference 379.0 mm/Hg Respiratory Index 5.3 Hgb O2 Saturation 92.2 L (95.0-98.0) % Mechanical Rate 22 FiO2 70.0 % Tidal Volume 500 PEEP 5 Sodium 137 (132-148) mmol/L Potassium 4.8 (3.6-5.2) mmol/L Chloride 98 (98-107) mmol/L Carbon Dioxide 22 (22-30) mmol/L Anion Gap 21 H (10-20) BUN 63 H (9-20) mg/dL Creatinine 6.5 H (0.8-1.5) MG/DL Est GFR ( Amer) 11 Est GFR (Non-Af Amer) 9 POC Glucose (mg/dL) (65-110) mg/dL Random Glucose 100 (75-110) mg/dL Lactic Acid 2.1 (0.7-2.1) mmol/L Calcium 7.4 L (8.6-10.4) mg/dl Phosphorus 7.9 H (2.5-4.5) mg/dL Magnesium 2.2 (1.6-2.3) mg/dL Total Bilirubin 0.9 (0.2-1.3) mg/dL AST 65 H (17-59) U/L ALT 31 (21-72) U/L Alkaline Phosphatase 200 H D (38-126) U/L Total Protein 6.2 L (6.3-8.3) g/dL Albumin 2.3 L (3.5-5.0) g/dL Globulin 3.9 (2.2-3.9) gm/dL Albumin/Globulin Ratio 0.6 L (1.0-2.1) 10/14/16 10/14/16 10/14/16 Range/Units 03:23 03:23 03:10 WBC 11.8 H (4.8-10.8) K/uL RBC 2.76 L (4.40-5.90) Mil/uL Hgb 7.6 L (12.0-18.0) g/dL Hct 24.1 L (35.0-51.0) % MCV 87.5 D (80.0-94.0) fL MCH 27.4 (27.0-31.0) pg MCHC 31.4 L (33.0-37.0) g/dL RDW 18.2 H (11.5-14.5) % Plt Count 156 (130-400) K/uL MPV 7.2 (7.2-11.7) fL Neut % (Auto) 97.0 H (50.0-75.0) % Lymph % (Auto) 1.2 L (20.0-40.0) % [place] % (Auto) 1.2 (0.0-10.0) % Eos % (Auto) 0.0 (0.0-4.0) % Baso % (Auto) 0.6 (0.0-2.0) % Neut # 11.4 H (1.8-7.0) K/uL Lymph # 0.1 L (1.0-4.3) K/uL [place] # 0.1 (0.0-0.8) K/uL Eos # 0.0 (0.0-0.7) K/uL Baso # 0.1 (0.0-0.2) K/uL Neutrophils % (Manual) 88 H (50-75) % Band Neutrophils % 8 H (0-2) % Lymphocytes % (Manual) 2 L (20-40) % Monocytes % (Manual) 2 (0-10) % Platelet Estimate Normal (NORMAL) Poikilocytosis (manual Moderate Anisocytosis (manual) Moderate PT 17.9 H (9.7-12.2) SECONDS INR 1.6 APTT 39 H D (21-34) SECONDS Puncture Site pCO2 (35-45) mm/Hg pO2 (30-55) mm/Hg HCO3 (21-28) mmol/L ABG pH (7.35-7.45) ABG Total CO2 (22-28) mmol/L ABG O2 Saturation (95-98) % ABG Base Excess (-2.0-3.0) mmol/L ABG Hemoglobin (11.7-17.4) g/dL ABG Carboxyhemoglobin (0.5-1.5) % POC ABG HHb (Measured) (0.0-5.0) % ABG Methemoglobin (0.0-3.0) % Eusebio Test VBG pH (7.32-7.43) VBG pCO2 (40-60) mmHg VBG HCO3 mmol/L VBG O2 Sat (Calc) (40-65) % VBG Base Excess (0.0-2.0) mmol/L A-a O2 Difference mm/Hg Respiratory Index Hgb O2 Saturation (95.0-98.0) % Mechanical Rate FiO2 % Tidal Volume PEEP Sodium (132-148) mmol/L Potassium (3.6-5.2) mmol/L Chloride (98-107) mmol/L Carbon Dioxide (22-30) mmol/L Anion Gap (10-20) BUN (9-20) mg/dL Creatinine (0.8-1.5) MG/DL Est GFR ( Amer) Est GFR (Non-Af Amer) POC Glucose (mg/dL) 112 H (65-110) mg/dL Random Glucose (75-110) mg/dL Lactic Acid (0.7-2.1) mmol/L Calcium (8.6-10.4) mg/dl Phosphorus (2.5-4.5) mg/dL Magnesium (1.6-2.3) mg/dL Total Bilirubin (0.2-1.3) mg/dL AST (17-59) U/L ALT (21-72) U/L Alkaline Phosphatase (38-126) U/L Total Protein (6.3-8.3) g/dL Albumin (3.5-5.0) g/dL Globulin (2.2-3.9) gm/dL Albumin/Globulin Ratio (1.0-2.1) 10/14/16 Range/Units 02:29 WBC (4.8-10.8) K/uL RBC (4.40-5.90) Mil/uL Hgb (12.0-18.0) g/dL Hct (35.0-51.0) % MCV (80.0-94.0) fL MCH (27.0-31.0) pg MCHC (33.0-37.0) g/dL RDW (11.5-14.5) % Plt Count (130-400) K/uL MPV (7.2-11.7) fL Neut % (Auto) (50.0-75.0) % Lymph % (Auto) (20.0-40.0) % [place] % (Auto) (0.0-10.0) % Eos % (Auto) (0.0-4.0) % Baso % (Auto) (0.0-2.0) % Neut # (1.8-7.0) K/uL Lymph # (1.0-4.3) K/uL [place] # (0.0-0.8) K/uL Eos # (0.0-0.7) K/uL Baso # (0.0-0.2) K/uL Neutrophils % (Manual) (50-75) % Band Neutrophils % (0-2) % Lymphocytes % (Manual) (20-40) % Monocytes % (Manual) (0-10) % Platelet Estimate (NORMAL) Poikilocytosis (manual Anisocytosis (manual) PT (9.7-12.2) SECONDS INR APTT (21-34) SECONDS Puncture Site Na pCO2 (35-45) mm/Hg pO2 41 (30-55) mm/Hg HCO3 (21-28) mmol/L ABG pH (7.35-7.45) ABG Total CO2 (22-28) mmol/L ABG O2 Saturation (95-98) % ABG Base Excess (-2.0-3.0) mmol/L ABG Hemoglobin (11.7-17.4) g/dL ABG Carboxyhemoglobin (0.5-1.5) % POC ABG HHb (Measured) (0.0-5.0) % ABG Methemoglobin (0.0-3.0) % Eusebio Test Na VBG pH 7.35 (7.32-7.43) VBG pCO2 42 (40-60) mmHg VBG HCO3 22.4 mmol/L VBG O2 Sat (Calc) 72.9 H (40-65) % VBG Base Excess -2.4 L (0.0-2.0) mmol/L A-a O2 Difference mm/Hg Respiratory Index Hgb O2 Saturation (95.0-98.0) % Mechanical Rate FiO2 % Tidal Volume PEEP Sodium (132-148) mmol/L Potassium (3.6-5.2) mmol/L Chloride (98-107) mmol/L Carbon Dioxide (22-30) mmol/L Anion Gap (10-20) BUN (9-20) mg/dL Creatinine (0.8-1.5) MG/DL Est GFR ( Amer) Est GFR (Non-Af Amer) POC Glucose (mg/dL) (65-110) mg/dL Random Glucose (75-110) mg/dL Lactic Acid (0.7-2.1) mmol/L Calcium (8.6-10.4) mg/dl Phosphorus (2.5-4.5) mg/dL Magnesium (1.6-2.3) mg/dL Total Bilirubin (0.2-1.3) mg/dL AST (17-59) U/L ALT (21-72) U/L Alkaline Phosphatase (38-126) U/L Total Protein (6.3-8.3) g/dL Albumin (3.5-5.0) g/dL Globulin (2.2-3.9) gm/dL Albumin/Globulin Ratio (1.0-2.1) Laboratory Results - last 24 hr 10/14/16 10/14/16 10/14/16 02:29 03:10 03:23 WBC 11.8 H RBC 2.76 L Hgb 7.6 L Hct 24.1 L MCV 87.5 D MCH 27.4 MCHC 31.4 L RDW 18.2 H Plt Count 156 MPV 7.2 Neut % (Auto) 97.0 H Lymph % (Auto) 1.2 L [place] % (Auto) 1.2 Eos % (Auto) 0.0 Baso % (Auto) 0.6 Neut # 11.4 H Lymph # 0.1 L [place] # 0.1 Eos # 0.0 Baso # 0.1 Neutrophils % (Manual) 88 H Band Neutrophils % 8 H Lymphocytes % (Manual) 2 L Monocytes % (Manual) 2 Platelet Estimate Normal Poikilocytosis (manual Moderate Anisocytosis (manual) Moderate PT INR APTT Puncture Site Na pCO2 pO2 41 HCO3 ABG pH ABG Total CO2 ABG O2 Saturation ABG Base Excess ABG Hemoglobin ABG Carboxyhemoglobin POC ABG HHb (Measured) ABG Methemoglobin Eusebio Test Na VBG pH 7.35 VBG pCO2 42 VBG HCO3 22.4 VBG O2 Sat (Calc) 72.9 H VBG Base Excess -2.4 L A-a O2 Difference Respiratory Index Hgb O2 Saturation Mechanical Rate FiO2 Tidal Volume PEEP Sodium Potassium Chloride Carbon Dioxide Anion Gap BUN Creatinine Est GFR ( Amer) Est GFR (Non-Af Amer) POC Glucose (mg/dL) 112 H Random Glucose Lactic Acid Calcium Phosphorus Magnesium Total Bilirubin AST ALT Alkaline Phosphatase Total Protein Albumin Globulin Albumin/Globulin Ratio 10/14/16 10/14/16 10/14/16 03:23 03:23 03:23 WBC RBC Hgb Hct MCV MCH MCHC RDW Plt Count MPV Neut % (Auto) Lymph % (Auto) [place] % (Auto) Eos % (Auto) Baso % (Auto) Neut # Lymph # [place] # Eos # Baso # Neutrophils % (Manual) Band Neutrophils % Lymphocytes % (Manual) Monocytes % (Manual) Platelet Estimate Poikilocytosis (manual Anisocytosis (manual) PT 17.9 H INR 1.6 APTT 39 H D Puncture Site pCO2 pO2 HCO3 ABG pH ABG Total CO2 ABG O2 Saturation ABG Base Excess ABG Hemoglobin ABG Carboxyhemoglobin POC ABG HHb (Measured) ABG Methemoglobin Eusebio Test VBG pH VBG pCO2 VBG HCO3 VBG O2 Sat (Calc) VBG Base Excess A-a O2 Difference Respiratory Index Hgb O2 Saturation Mechanical Rate FiO2 Tidal Volume PEEP Sodium 137 Potassium 4.8 Chloride 98 Carbon Dioxide 22 Anion Gap 21 H BUN 63 H Creatinine 6.5 H Est GFR ( Amer) 11 Est GFR (Non-Af Amer) 9 POC Glucose (mg/dL) Random Glucose 100 Lactic Acid 2.1 Calcium 7.4 L Phosphorus 7.9 H Magnesium 2.2 Total Bilirubin 0.9 AST 65 H ALT 31 Alkaline Phosphatase 200 H D Total Protein 6.2 L Albumin 2.3 L Globulin 3.9 Albumin/Globulin Ratio 0.6 L 10/14/16 10/14/16 10/14/16 05:52 09:44 09:44 WBC 5.1 D RBC 2.63 L Hgb 7.1 L Hct 23.0 L MCV 87.4 MCH 26.9 L MCHC 30.7 L RDW 19.0 H Plt Count 135 MPV 7.6 Neut % (Auto) 95.9 H Lymph % (Auto) 2.0 L [place] % (Auto) 1.3 Eos % (Auto) 0.3 Baso % (Auto) 0.5 Neut # 4.9 Lymph # 0.1 L [place] # 0.1 Eos # 0.0 Baso # 0.0 Neutrophils % (Manual) Band Neutrophils % Lymphocytes % (Manual) Monocytes % (Manual) Platelet Estimate Poikilocytosis (manual Anisocytosis (manual) PT 20.6 H INR 1.8 APTT 39 H Puncture Site Rb pCO2 39 pO2 71 L HCO3 22.3 ABG pH 7.36 ABG Total CO2 23.2 ABG O2 Saturation 94.0 L ABG Base Excess -3.2 L ABG Hemoglobin 12.0 ABG Carboxyhemoglobin 1.5 POC ABG HHb (Measured) 5.9 H ABG Methemoglobin 0.4 Eusebio Test Na VBG pH VBG pCO2 VBG HCO3 VBG O2 Sat (Calc) VBG Base Excess A-a O2 Difference 379.0 Respiratory Index 5.3 Hgb O2 Saturation 92.2 L Mechanical Rate 22 FiO2 70.0 Tidal Volume 500 PEEP 5 Sodium Potassium Chloride Carbon Dioxide Anion Gap BUN Creatinine Est GFR ( Amer) Est GFR (Non-Af Amer) POC Glucose (mg/dL) Random Glucose Lactic Acid Calcium Phosphorus Magnesium Total Bilirubin AST ALT Alkaline Phosphatase Total Protein Albumin Globulin Albumin/Globulin Ratio 10/14/16 09:44 WBC RBC Hgb Hct MCV MCH MCHC RDW Plt Count MPV Neut % (Auto) Lymph % (Auto) [place] % (Auto) Eos % (Auto) Baso % (Auto) Neut # Lymph # [place] # Eos # Baso # Neutrophils % (Manual) Band Neutrophils % Lymphocytes % (Manual) Monocytes % (Manual) Platelet Estimate Poikilocytosis (manual Anisocytosis (manual) PT INR APTT Puncture Site pCO2 pO2 HCO3 ABG pH ABG Total CO2 ABG O2 Saturation ABG Base Excess ABG Hemoglobin ABG Carboxyhemoglobin POC ABG HHb (Measured) ABG Methemoglobin Eusebio Test VBG pH VBG pCO2 VBG HCO3 VBG O2 Sat (Calc) VBG Base Excess A-a O2 Difference Respiratory Index Hgb O2 Saturation Mechanical Rate FiO2 Tidal Volume PEEP Sodium 136 Potassium 4.6 Chloride 97 L Carbon Dioxide 22 Anion Gap 22 H BUN 69 H Creatinine 6.4 H Est GFR ( Amer) 11 Est GFR (Non-Af Amer) 9 POC Glucose (mg/dL) Random Glucose 116 H Lactic Acid Calcium 7.1 L Phosphorus Magnesium 2.1 Total Bilirubin AST ALT Alkaline Phosphatase Total Protein Albumin Globulin Albumin/Globulin Ratio Fingerstick Blood Sugar Results: 88
[2016-10-14 11:33] LABS: NEUTROPHIL 58 % (50-75); TOTAL CELLS COUNTED 100
--- NOTE | 2016-10-14 12:19 | CP.PCM.CON ---
History of Present Illness - History of Present Illness History of Present Illness: Palliative consult requested by Charbel TAVERA Reason: Goals of care Patient is a 56 yo male admitted from [facility] where he was found unresponsive after fall, S/P most likely cardiac arrest. Patient was intubated on the field and brought to ED.The CT scan showed large brain edema and nasal fracture. Patient is diagnosed with anoxic head injury.Palliative consult was called to assist with goals of care since patient has no family in this country. 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 Hx: Never , further information limited PMH: [place] Review of Systems - Review of Systems Systems not reviewed;Unavailable: Intubated Past Patient History - Infectious Disease Hx of Infectious Diseases: None - Past Medical History & Family History Past Medical History?: Yes - Past Social History Smoking Status: unable to - CARDIAC Hx Hypertension: Yes - PULMONARY Hx Chronic Obstructive Pulmonary Disease (COPD): Yes Hx Emphysema: Yes - RENAL Hx Dialysis: Yes Type of Dialysis Access: left AV shunt Date of Last Dialysis Treatment: 10/04/16 Hx Renal Failure: Yes - ENDOCRINE/METABOLIC Hx Diabetes Mellitus Type 1: Yes - MUSCULOSKELETAL/RHEUMATOLOGICAL Hx Falls: No Hx Osteomyelitis: Yes - PSYCHIATRIC Hx Anxiety: Yes Hx Substance Use: No - SURGICAL HISTORY Hx Coronary Artery Bypass Graft: Yes - ANESTHESIA Hx Anesthesia: Yes Hx Anesthesia Reactions: No Hx Malignant Hyperthermia: (uk) Has any member of the family had a problem w/ anesthesia?: (uk) Meds Allergies/Adverse Reactions: Allergies Allergy/AdvReac Type Severity Reaction Status Date / Time No Known Allergies Allergy Verified 10/13/16 22:58 - Medications Medications: Current Medications Acetaminophen (Tylenol 650mg/20.3ml Solution Ud) 325 mg NG Q6 PRN PRN Reason: Rigors Artificial Tears (Lacri-Lube) 1 gm OU Q4 INGA Last Admin: 10/14/16 08:36 Dose: 1 gm Heparin Sodium (Porcine) (Heparin) 5,000 units SC Q8 INGA Norepinephrine Bitartrate 8 mg (/ Sodium Chloride) 258 mls @ 7.74 mls/hr IV .Q24H STA; 4 MCG/MIN PRN Reason: Protocol Stop: 10/14/16 23:34 Last Admin: 10/14/16 05:00 Dose: 2 mcg/min, 3.87 mls/hr Vancomycin HCl (Vancomycin 1gm In Normal Saline Addvantage) 250 mls @ 166.667 mls/hr IV STAT [facility] Piperacillin Sod/Tazobactam (Sod 2.25 gm/ Sodium Chloride) 100 mls @ 200 mls/ hr IVPB Q8H [facility] Last Admin: 10/14/16 06:54 Dose: 200 mls/hr Meperidine HCl (Demerol) 25 mg IVP Q30M PRN PRN Reason: Rigors Pantoprazole Sodium (Protonix Inj) 40 mg IVP DAILY [facility] Last Admin: 10/14/16 10:06 Dose: 40 mg Physical Exam - Constitutional Appears: Chronically Ill - Head Exam Head Exam: ATRAUMATIC, NORMAL INSPECTION, NORMOCEPHALIC - Eye Exam Pupil Exam: Fixed - ENT Exam Additional comments: OG tube - Neck Exam Neck exam: Positive for: Normal Inspection - Respiratory Exam Additional comments: On MV support - Cardiovascular Exam Cardiovascular Exam: Tachycardia - GI/Abdominal Exam GI & Abdominal Exam: Hypoactive Bowel Sounds - Rectal Exam Rectal Exam: Deferred - Extremities Exam Additional comments: Severely infected feet, right foot abducted at 90 degree angle - Back Exam Back exam: NORMAL INSPECTION - Neurological Exam Neurological exam: Motor Sensory Deficit - Psychiatric Exam Psychiatric exam: Flat Affect - Skin Skin Exam: Pallor Results - Vital Signs Recent Vital Signs: Last Vital Signs Temp 92 F L 10/14/16 11:00 Pulse 65 10/14/16 11:15 Resp 21 10/14/16 11:15 BP 110/65 10/14/16 11:15 Pulse Ox 96 10/14/16 11:15 - Labs Result Diagrams: 10/14/16 09:44 10/14/16 09:44 Labs: Laboratory Results - last 24 hr 10/14/16 10/14/16 10/14/16 02:29 03:10 03:23 WBC 11.8 H RBC 2.76 L Hgb 7.6 L Hct 24.1 L MCV 87.5 D MCH 27.4 MCHC 31.4 L RDW 18.2 H Plt Count 156 MPV 7.2 Neut % (Auto) 97.0 H Lymph % (Auto) 1.2 L [place] % (Auto) 1.2 Eos % (Auto) 0.0 Baso % (Auto) 0.6 Neut # 11.4 H Lymph # 0.1 L [place] # 0.1 Eos # 0.0 Baso # 0.1 Neutrophils % (Manual) 88 H Band Neutrophils % 8 H Lymphocytes % (Manual) 2 L Monocytes % (Manual) 2 Platelet Estimate Normal Hypochromasia (manual) Poikilocytosis (manual Moderate Anisocytosis (manual) Moderate Microcytosis (manual) Macrocytosis (manual) Ovalocytes [place] Cells PT INR APTT Puncture Site Na pCO2 pO2 41 HCO3 ABG pH ABG Total CO2 ABG O2 Saturation ABG Base Excess ABG Hemoglobin ABG Carboxyhemoglobin POC ABG HHb (Measured) ABG Methemoglobin Eusebio Test Na VBG pH 7.35 VBG pCO2 42 VBG HCO3 22.4 VBG O2 Sat (Calc) 72.9 H VBG Base Excess -2.4 L A-a O2 Difference Respiratory Index Hgb O2 Saturation Mechanical Rate FiO2 Tidal Volume PEEP Sodium Potassium Chloride Carbon Dioxide Anion Gap BUN Creatinine Est GFR ( Amer) Est GFR (Non-Af Amer) POC Glucose (mg/dL) 112 H Random Glucose Lactic Acid Calcium Phosphorus Magnesium Total Bilirubin AST ALT Alkaline Phosphatase Total Protein Albumin Globulin Albumin/Globulin Ratio Stool Leukocytes, Qual C. difficile Ag & Toxin 10/14/16 10/14/16 10/14/16 03:23 03:23 03:23 WBC RBC Hgb Hct MCV MCH MCHC RDW Plt Count MPV Neut % (Auto) Lymph % (Auto) [place] % (Auto) Eos % (Auto) Baso % (Auto) Neut # Lymph # [place] # Eos # Baso # Neutrophils % (Manual) Band Neutrophils % Lymphocytes % (Manual) Monocytes % (Manual) Platelet Estimate Hypochromasia (manual) Poikilocytosis (manual Anisocytosis (manual) Microcytosis (manual) Macrocytosis (manual) Ovalocytes [place] Cells PT 17.9 H INR 1.6 APTT 39 H D Puncture Site pCO2 pO2 HCO3 ABG pH ABG Total CO2 ABG O2 Saturation ABG Base Excess ABG Hemoglobin ABG Carboxyhemoglobin POC ABG HHb (Measured) ABG Methemoglobin Eusebio Test VBG pH VBG pCO2 VBG HCO3 VBG O2 Sat (Calc) VBG Base Excess A-a O2 Difference Respiratory Index Hgb O2 Saturation Mechanical Rate FiO2 Tidal Volume PEEP Sodium 137 Potassium 4.8 Chloride 98 Carbon Dioxide 22 Anion Gap 21 H BUN 63 H Creatinine 6.5 H Est GFR ( Amer) 11 Est GFR (Non-Af Amer) 9 POC Glucose (mg/dL) Random Glucose 100 Lactic Acid 2.1 Calcium 7.4 L Phosphorus 7.9 H Magnesium 2.2 Total Bilirubin 0.9 AST 65 H ALT 31 Alkaline Phosphatase 200 H D Total Protein 6.2 L Albumin 2.3 L Globulin 3.9 Albumin/Globulin Ratio 0.6 L Stool Leukocytes, Qual C. difficile Ag & Toxin 10/14/16 10/14/16 10/14/16 05:52 06:00 06:00 WBC RBC Hgb Hct MCV MCH MCHC RDW Plt Count MPV Neut % (Auto) Lymph % (Auto) [place] % (Auto) Eos % (Auto) Baso % (Auto) Neut # Lymph # [place] # Eos # Baso # Neutrophils % (Manual) Band Neutrophils % Lymphocytes % (Manual) Monocytes % (Manual) Platelet Estimate Hypochromasia (manual) Poikilocytosis (manual Anisocytosis (manual) Microcytosis (manual) Macrocytosis (manual) Ovalocytes [place] Cells PT INR APTT Puncture Site Rb pCO2 39 pO2 71 L HCO3 22.3 ABG pH 7.36 ABG Total CO2 23.2 ABG O2 Saturation 94.0 L ABG Base Excess -3.2 L ABG Hemoglobin 12.0 ABG Carboxyhemoglobin 1.5 POC ABG HHb (Measured) 5.9 H ABG Methemoglobin 0.4 Eusebio Test Na VBG pH VBG pCO2 VBG HCO3 VBG O2 Sat (Calc) VBG Base Excess A-a O2 Difference 379.0 Respiratory Index 5.3 Hgb O2 Saturation 92.2 L Mechanical Rate 22 FiO2 70.0 Tidal Volume 500 PEEP 5 Sodium Potassium Chloride Carbon Dioxide Anion Gap BUN Creatinine Est GFR ( Amer) Est GFR (Non-Af Amer) POC Glucose (mg/dL) Random Glucose Lactic Acid Calcium Phosphorus Magnesium Total Bilirubin AST ALT Alkaline Phosphatase Total Protein Albumin Globulin Albumin/Globulin Ratio Stool Leukocytes, Qual Negative C. difficile Ag & Toxin Negative 10/14/16 10/14/16 10/14/16 09:44 09:44 09:44 WBC 5.1 D RBC 2.63 L Hgb 7.1 L Hct 23.0 L MCV 87.4 MCH 26.9 L MCHC 30.7 L RDW 19.0 H Plt Count 135 MPV 7.6 Neut % (Auto) 95.9 H Lymph % (Auto) 2.0 L [place] % (Auto) 1.3 Eos % (Auto) 0.3 Baso % (Auto) 0.5 Neut # 4.9 Lymph # 0.1 L [place] # 0.1 Eos # 0.0 Baso # 0.0 Neutrophils % (Manual) 58 Band Neutrophils % 31 H* Lymphocytes % (Manual) 4 L Monocytes % (Manual) 7 Platelet Estimate Normal Hypochromasia (manual) Slight Poikilocytosis (manual Slight Anisocytosis (manual) Slight Microcytosis (manual) Slight Macrocytosis (manual) Slight Ovalocytes Slight [place] Cells Slight PT 20.6 H INR 1.8 APTT 39 H Puncture Site pCO2 pO2 HCO3 ABG pH ABG Total CO2 ABG O2 Saturation ABG Base Excess ABG Hemoglobin ABG Carboxyhemoglobin POC ABG HHb (Measured) ABG Methemoglobin Eusebio Test VBG pH VBG pCO2 VBG HCO3 VBG O2 Sat (Calc) VBG Base Excess A-a O2 Difference Respiratory Index Hgb O2 Saturation Mechanical Rate FiO2 Tidal Volume PEEP Sodium 136 Potassium 4.6 Chloride 97 L Carbon Dioxide 22 Anion Gap 22 H BUN 69 H Creatinine 6.4 H Est GFR ( Amer) 11 Est GFR (Non-Af Amer) 9 POC Glucose (mg/dL) Random Glucose 116 H Lactic Acid Calcium 7.1 L Phosphorus Magnesium 2.1 Total Bilirubin AST ALT Alkaline Phosphatase Total Protein Albumin Globulin Albumin/Globulin Ratio Stool Leukocytes, Qual C. difficile Ag & Toxin Assessment & Plan - Assessment and Plan (Free Text) Assessment: Palliative consult Code status Full Code, no advance directive on chart, PPS 0%, ROS unobtainable from the patient due to acuity of condition I reviewed medical records, all diagnostic studies, examined patient in the bed , discussed his condition with Resident and nursing. ROS obtained from nursing. Patient is on MV support unresponsive to verbal stimuli. Patient reacts to deep pressure by jerky, unintentional movements. Pupils are fixed. There is weak gag reflex.Patient looks chronically ill and severely debilitated. Right foot is externally abducted at almost 90 degrees. The left great toe is amputated. There is large pedal edema. BP supported by Levophed. Hb 7.1 today. Patient has no family members listed and as per [facility] info, patient had no family visiting while he was there. Patient was recently discharged to [facility] from this hospital. The supervisor contact and service clerks Matthew Langford ( [phone]) did not answer his phone and I left message asking for call back. Impression * This is a severely debilitated young man with extremely poor quality of life * The physical exam reveals signs of long lasting chronic diseases that took tall on the body * Patient could either continue life prolonging care which will not necessary improve his quality of life, or be allowed natural . * Patient's wishes for end of life care are not known and patient is unable to advocate for himself * There is no close family members * salesperson sewing machines is not answering his phone at this time Suggestion * Palliative care will continue search for patient's supervisor contact and service clerks to elicit any information regarding patient's wishes for the end of life care * The DNR/DNI status would be appropriate level of care * Neurology consult * The Bioethics consult should be called to discuss further goals of care for this very unfortunate patient * The final step should be to allow natural to this man whose expectations for meaningful recovery seems very poor almost no existing. I will update you on any further findings regarding patient's end of life wishes. Thank you for contacting Palliative care.
[2016-10-14 15:49] LABS: BASO % 0.1 % (0.0-2.0); EOS # 0.1 K/uL (0.0-0.7); EOS % 2.2 % (0.0-4.0); HEMATOCRIT 21.5 % (35.0-51.0); LYMPH # 0.1 K/uL (1.0-4.3); MEAN CELL VOLUME 87.6 fL (80.0-94.0); MEAN CORPUSCULAR HEMOGLOBIN 27.6 pg (27.0-31.0); MEAN CORPUSCULAR HGB CONC 31.5 g/dL (33.0-37.0); MEAN PLATELET VOLUME 7.6 fL (7.2-11.7); MONO % 1.2 % (0.0-10.0); PLATELET COUNT 122 K/uL (130-400); RED CELL DISTRIBUTION WIDTH 18.9 % (11.5-14.5); WHITE BLOOD COUNT 3.7 K/uL (4.8-10.8)
[2016-10-14 15:59] LABS: INR 1.9
[2016-10-14 16:33] LABS: POTASSIUM 4.7 mmol/L (3.6-5.2)
[2016-10-14 16:37] LABS: CALCIUM 6.9 mg/dl (8.6-10.4); MAGNESIUM 2.1 mg/dL (1.6-2.3)
[2016-10-14] MEDS ORDERED: DOPamine 400mg/250ml D5W 400 MG/250 ML BAG IV PRN (18:17)
[2016-10-14] MEDS ORDERED: EPINEPHrine 1 mg/ml (1:1000) Inj IV ONE (18:24)
[2016-10-14] MEDS ORDERED: Sodium Bicarbonate (8.4%) 50 Meq Syringe IVP ONE (18:24)
[2016-10-14 18:39] LABS: METAMYELOCYTE 7 % (0-0); NEUTROPHIL 57 % (50-75); TOTAL CELLS COUNTED 100
[2016-10-14 21:38] LABS: BASO % 0.7 % (0.0-2.0); EOS % 0.8 % (0.0-4.0); LYMPH # 0.1 K/uL (1.0-4.3); LYMPH % 1.8 % (20.0-40.0); MEAN CELL VOLUME 87.7 fL (80.0-94.0); MEAN CORPUSCULAR HEMOGLOBIN 27.5 pg (27.0-31.0); MEAN CORPUSCULAR HGB CONC 31.3 g/dL (33.0-37.0); MEAN PLATELET VOLUME 8.1 fL (7.2-11.7); MONO % 1.2 % (0.0-10.0); NRBC % 0.2 % (0.0-2.0); PLATELET COUNT 126 K/uL (130-400)
[2016-10-14 21:47] LABS: POTASSIUM 5.1 mmol/L (3.6-5.2)
[2016-10-14 21:49] LABS: ALB/GLOB RATIO 0.6 (1.0-2.1); BILIRUBIN,TOTAL 0.9 mg/dL (0.2-1.3); TOTAL PROTEIN 6.2 g/dL (6.3-8.3)
[2016-10-14 21:50] LABS: CALCIUM 6.8 mg/dl (8.6-10.4); MAGNESIUM 2.2 mg/dL (1.6-2.3); PHOSPHOROUS 9.3 mg/dL (2.5-4.5)
--- NOTE | 2016-10-14 22:59 | CARD ---
APPROVED REPORT EKG Measurement Heart [id number] <Conclusion> Normal sinus rhythm Anteroseptal infarct, age undetermined Abnormal ECG
--- NOTE | 2016-10-14 23:11 | CP.CCUPN ---
CCU Subjective - Physician Review Events Since Last Encounter (Free Text): 10/14/16 23:09 patient became bradycardicfollowed by [facility] CPR initiated CCU Objective - Vital Signs / Intake & Output Vital Signs (Last 4 hours): Vital Signs Pulse Resp BP Pulse Ox 10/14/16 19:30 108 H 23 100 10/14/16 19:22 110 H 21 134/75 100 10/14/16 19:20 110 H 21 100 10/14/16 19:12 111 H 19 142/82 100 10/14/16 19:10 112 H 18 100 Intake and Output (Last 8hrs): Intake & Output 10/14/16 10/14/16 10/15/16 14:59 22:59 06:59 Intake Total 34.1 567.4 Output Total 250 Balance 34.1 317.4 Intake: IV 210 Intake, IV Amount 34.1 357.4 Right Forearm 200 Right PICC 34.1 95.6 Right PICC #2 57.0 Right PICC #3 4.8 Output: Gastric Amount 250 Stomach 250 - Physical Exam Head: Positive for: Atraumatic, Normocephalic Pupils: Positive for: Non-Reactive Conjunctiva: Positive for: Normal Respiratory/Chest: Positive for: Good Air Exchange, Other (on vent) Abdomen: Negative for: Distention - Medications Active Medications: Active Medications Generic Name Dose Route Start Last Admin Trade Name Freq PRN Reason Stop Dose Admin Acetaminophen 325 mg 10/14/16 02:24 Tylenol 650mg/20.3ml Solution Ud NG Q6 PRN Rigors Artificial Tears 1 gm 10/14/16 04:00 10/14/16 18:02 Lacri-Lube OU 1 gm Q4 INGA Administration Heparin Sodium (Porcine) 5,000 units 10/14/16 14:00 10/14/16 14:16 Heparin SC 5,000 units Q8 INGA Administration Norepinephrine Bitartrate 8 mg 258 mls @ 7.74 mls/hr 10/13/16 23:35 10/14/16 18:56 / Sodium Chloride IV 10/14/16 23:34 15 mcg/min .Q24H STA 29.02 mls/hr Protocol Titration 4 MCG/MIN Piperacillin Sod/Tazobactam 100 mls @ 200 mls/hr 10/14/16 07:30 10/14/16 15: 54 Sod 2.25 gm/ Sodium Chloride IVPB 200 mls/hr Q8H INGA Administration Vasopressin 40 units/ Sodium 40 mls @ 0.6 mls/hr 10/14/16 18:15 10/14/16 18: 30 Chloride IV 0.04 units/min .Q24H INGA 2.4 mls/hr Protocol Administration 0.01 UNITS/MIN Dopamine HCl/Dextrose 400 mg in 250 mls @ 5.19 mls/hr 10/14/16 18:17 18:55 Dopamine 400mg/250ml D5w IV 10 mcg/kg/min .Q24H PRN 25.95 mls/hr TITRATE PER MD ORDER Titration Protocol 2 MCG/KG/MIN Meperidine HCl 25 mg 10/14/16 02:24 Demerol IVP Q30M PRN Rigors Pantoprazole Sodium 40 mg 10/14/16 10:00 10/14/16 10:06 Protonix Inj IVP 40 mg DAILY INGA Administration - Patient Studies Lab Studies: Microbiology Studies 10/14/16 06:00 Gram Stain - Final Trachasp Lab Studies 10/14/16 10/14/16 10/14/16 Range/Units 21:24 21:24 21:24 WBC 4.0 L (4.8-10.8) K/uL RBC 2.62 L (4.40-5.90) Mil/uL Hgb 7.2 L (12.0-18.0) g/dL Hct 23.0 L (35.0-51.0) % MCV 87.7 (80.0-94.0) fL MCH 27.5 (27.0-31.0) pg MCHC 31.3 L (33.0-37.0) g/dL RDW 19.0 H (11.5-14.5) % Plt Count 126 L (130-400) K/uL MPV 8.1 (7.2-11.7) fL Neut % (Auto) 95.5 H (50.0-75.0) % Lymph % (Auto) 1.8 L (20.0-40.0) % [place] % (Auto) 1.2 (0.0-10.0) % Eos % (Auto) 0.8 (0.0-4.0) % Baso % (Auto) 0.7 (0.0-2.0) % Neut # 3.8 (1.8-7.0) K/uL Lymph # 0.1 L (1.0-4.3) K/uL [place] # 0.0 (0.0-0.8) K/uL Eos # 0.0 (0.0-0.7) K/uL Baso # 0.0 (0.0-0.2) K/uL Neutrophils % (Manual) (50-75) % Band Neutrophils % (0-2) % Lymphocytes % (Manual) (20-40) % Monocytes % (Manual) (0-10) % Metamyelocytes % (0-0) % Platelet Estimate (NORMAL) Hypochromasia (manual) Poikilocytosis (manual Anisocytosis (manual) Microcytosis (manual) Macrocytosis (manual) Ovalocytes Jannet Cells PT 23.4 H (9.7-12.2) SECONDS INR 2.0 APTT 41 H (21-34) SECONDS Puncture Site pCO2 (35-45) mm/Hg pO2 (30-55) mm/Hg HCO3 (21-28) mmol/L ABG pH (7.35-7.45) ABG Total CO2 (22-28) mmol/L ABG O2 Saturation (95-98) % ABG Base Excess (-2.0-3.0) mmol/L ABG Hemoglobin (11.7-17.4) g/dL ABG Carboxyhemoglobin (0.5-1.5) % POC ABG HHb (Measured) (0.0-5.0) % ABG Methemoglobin (0.0-3.0) % Eusebio Test VBG pH (7.32-7.43) VBG pCO2 (40-60) mmHg VBG HCO3 mmol/L VBG O2 Sat (Calc) (40-65) % VBG Base Excess (0.0-2.0) mmol/L A-a O2 Difference mm/Hg Respiratory Index Hgb O2 Saturation (95.0-98.0) % Mechanical Rate FiO2 % Tidal Volume PEEP Sodium 137 (132-148) mmol/L Potassium 5.1 (3.6-5.2) mmol/L Chloride 98 (98-107) mmol/L Carbon Dioxide 23 (22-30) mmol/L Anion Gap 22 H (10-20) BUN 73 H (9-20) mg/dL Creatinine 6.7 H (0.8-1.5) MG/DL Est GFR ( Amer) 10 Est GFR (Non-Af Amer) 9 POC Glucose (mg/dL) (65-110) mg/dL Random Glucose 56 L (75-110) mg/dL Lactic Acid (0.7-2.1) mmol/L Calcium 6.8 L (8.6-10.4) mg/dl Phosphorus 9.3 H (2.5-4.5) mg/dL Magnesium 2.2 (1.6-2.3) mg/dL Total Bilirubin 0.9 (0.2-1.3) mg/dL AST 44 (17-59) U/L ALT 27 (21-72) U/L Alkaline Phosphatase 139 H D (38-126) U/L Total Protein 6.2 L (6.3-8.3) g/dL Albumin 2.4 L (3.5-5.0) g/dL Globulin 3.8 (2.2-3.9) gm/dL Albumin/Globulin Ratio 0.6 L (1.0-2.1) Stool Leukocytes, Qual (NEGATIVE) C. difficile Ag & Toxin (NEGATIVE) 10/14/16 10/14/16 10/14/16 Range/Units 17:57 15:45 15:45 WBC (4.8-10.8) K/uL RBC (4.40-5.90) Mil/uL Hgb (12.0-18.0) g/dL Hct (35.0-51.0) % MCV (80.0-94.0) fL MCH (27.0-31.0) pg MCHC (33.0-37.0) g/dL RDW (11.5-14.5) % Plt Count (130-400) K/uL MPV (7.2-11.7) fL Neut % (Auto) (50.0-75.0) % Lymph % (Auto) (20.0-40.0) % [place] % (Auto) (0.0-10.0) % Eos % (Auto) (0.0-4.0) % Baso % (Auto) (0.0-2.0) % Neut # (1.8-7.0) K/uL Lymph # (1.0-4.3) K/uL [place] # (0.0-0.8) K/uL Eos # (0.0-0.7) K/uL Baso # (0.0-0.2) K/uL Neutrophils % (Manual) (50-75) % Band Neutrophils % (0-2) % Lymphocytes % (Manual) (20-40) % Monocytes % (Manual) (0-10) % Metamyelocytes % (0-0) % Platelet Estimate (NORMAL) Hypochromasia (manual) Poikilocytosis (manual Anisocytosis (manual) Microcytosis (manual) Macrocytosis (manual) Ovalocytes Jannet Cells PT 21.6 H (9.7-12.2) SECONDS INR 1.9 APTT 41 H (21-34) SECONDS Puncture Site pCO2 (35-45) mm/Hg pO2 (30-55) mm/Hg HCO3 (21-28) mmol/L ABG pH (7.35-7.45) ABG Total CO2 (22-28) mmol/L ABG O2 Saturation (95-98) % ABG Base Excess (-2.0-3.0) mmol/L ABG Hemoglobin (11.7-17.4) g/dL ABG Carboxyhemoglobin (0.5-1.5) % POC ABG HHb (Measured) (0.0-5.0) % ABG Methemoglobin (0.0-3.0) % Eusebio Test VBG pH (7.32-7.43) VBG pCO2 (40-60) mmHg VBG HCO3 mmol/L VBG O2 Sat (Calc) (40-65) % VBG Base Excess (0.0-2.0) mmol/L A-a O2 Difference mm/Hg Respiratory Index Hgb O2 Saturation (95.0-98.0) % Mechanical Rate FiO2 % Tidal Volume PEEP Sodium 138 (132-148) mmol/L Potassium 4.7 (3.6-5.2) mmol/L Chloride 98 (98-107) mmol/L Carbon Dioxide 23 (22-30) mmol/L Anion Gap 20 (10-20) BUN 69 H (9-20) mg/dL Creatinine 6.9 H (0.8-1.5) MG/DL Est GFR ( Amer) 10 Est GFR (Non-Af Amer) 8 POC Glucose (mg/dL) 97 (65-110) mg/dL Random Glucose 97 (75-110) mg/dL Lactic Acid (0.7-2.1) mmol/L Calcium 6.9 L (8.6-10.4) mg/dl Phosphorus (2.5-4.5) mg/dL Magnesium 2.1 (1.6-2.3) mg/dL Total Bilirubin (0.2-1.3) mg/dL AST (17-59) U/L ALT (21-72) U/L Alkaline Phosphatase (38-126) U/L Total Protein (6.3-8.3) g/dL Albumin (3.5-5.0) g/dL Globulin (2.2-3.9) gm/dL Albumin/Globulin Ratio (1.0-2.1) Stool Leukocytes, Qual (NEGATIVE) C. difficile Ag & Toxin (NEGATIVE) 10/14/16 10/14/16 10/14/16 Range/Units 15:45 12:42 09:44 WBC 3.7 L (4.8-10.8) K/uL RBC 2.45 L (4.40-5.90) Mil/uL Hgb 6.8 L (12.0-18.0) g/dL Hct 21.5 L (35.0-51.0) % MCV 87.6 (80.0-94.0) fL MCH 27.6 (27.0-31.0) pg MCHC 31.5 L (33.0-37.0) g/dL RDW 18.9 H (11.5-14.5) % Plt Count 122 L (130-400) K/uL MPV 7.6 (7.2-11.7) fL Neut % (Auto) 93.5 H (50.0-75.0) % Lymph % (Auto) 3.0 L (20.0-40.0) % [place] % (Auto) 1.2 (0.0-10.0) % Eos % (Auto) 2.2 (0.0-4.0) % Baso % (Auto) 0.1 (0.0-2.0) % Neut # 3.5 (1.8-7.0) K/uL Lymph # 0.1 L (1.0-4.3) K/uL [place] # 0.0 (0.0-0.8) K/uL Eos # 0.1 (0.0-0.7) K/uL Baso # 0.0 (0.0-0.2) K/uL Neutrophils % (Manual) 57 (50-75) % Band Neutrophils % 31 H* (0-2) % Lymphocytes % (Manual) 4 L (20-40) % Monocytes % (Manual) 1 (0-10) % Metamyelocytes % 7 H (0-0) % Platelet Estimate Slightly decreased L (NORMAL) Hypochromasia (manual) Slight Poikilocytosis (manual Slight Anisocytosis (manual) Slight Microcytosis (manual) Macrocytosis (manual) Ovalocytes Jannet Cells Slight PT (9.7-12.2) SECONDS INR APTT (21-34) SECONDS Puncture Site pCO2 (35-45) mm/Hg pO2 (30-55) mm/Hg HCO3 (21-28) mmol/L ABG pH (7.35-7.45) ABG Total CO2 (22-28) mmol/L ABG O2 Saturation (95-98) % ABG Base Excess (-2.0-3.0) mmol/L ABG Hemoglobin (11.7-17.4) g/dL ABG Carboxyhemoglobin (0.5-1.5) % POC ABG HHb (Measured) (0.0-5.0) % ABG Methemoglobin (0.0-3.0) % Eusebio Test VBG pH (7.32-7.43) VBG pCO2 (40-60) mmHg VBG HCO3 mmol/L VBG O2 Sat (Calc) (40-65) % VBG Base Excess (0.0-2.0) mmol/L A-a O2 Difference mm/Hg Respiratory Index Hgb O2 Saturation (95.0-98.0) % Mechanical Rate FiO2 % Tidal Volume PEEP Sodium 136 (132-148) mmol/L Potassium 4.6 (3.6-5.2) mmol/L Chloride 97 L (98-107) mmol/L Carbon Dioxide 22 (22-30) mmol/L Anion Gap 22 H (10-20) BUN 69 H (9-20) mg/dL Creatinine 6.4 H (0.8-1.5) MG/DL Est GFR ( Amer) 11 Est GFR (Non-Af Amer) 9 POC Glucose (mg/dL) 136 H (65-110) mg/dL Random Glucose 116 H (75-110) mg/dL Lactic Acid (0.7-2.1) mmol/L Calcium 7.1 L (8.6-10.4) mg/dl Phosphorus (2.5-4.5) mg/dL Magnesium 2.1 (1.6-2.3) mg/dL Total Bilirubin (0.2-1.3) mg/dL AST (17-59) U/L ALT (21-72) U/L Alkaline Phosphatase (38-126) U/L Total Protein (6.3-8.3) g/dL Albumin (3.5-5.0) g/dL Globulin (2.2-3.9) gm/dL Albumin/Globulin Ratio (1.0-2.1) Stool Leukocytes, Qual (NEGATIVE) C. difficile Ag & Toxin (NEGATIVE) 10/14/16 10/14/16 10/14/16 Range/Units 09:44 09:44 06:00 WBC 5.1 D (4.8-10.8) K/uL RBC 2.63 L (4.40-5.90) Mil/uL Hgb 7.1 L (12.0-18.0) g/dL Hct 23.0 L (35.0-51.0) % MCV 87.4 (80.0-94.0) fL MCH 26.9 L (27.0-31.0) pg MCHC 30.7 L (33.0-37.0) g/dL RDW 19.0 H (11.5-14.5) % Plt Count 135 (130-400) K/uL MPV 7.6 (7.2-11.7) fL Neut % (Auto) 95.9 H (50.0-75.0) % Lymph % (Auto) 2.0 L (20.0-40.0) % [place] % (Auto) 1.3 (0.0-10.0) % Eos % (Auto) 0.3 (0.0-4.0) % Baso % (Auto) 0.5 (0.0-2.0) % Neut # 4.9 (1.8-7.0) K/uL Lymph # 0.1 L (1.0-4.3) K/uL [place] # 0.1 (0.0-0.8) K/uL Eos # 0.0 (0.0-0.7) K/uL Baso # 0.0 (0.0-0.2) K/uL Neutrophils % (Manual) 58 (50-75) % Band Neutrophils % 31 H* (0-2) % Lymphocytes % (Manual) 4 L (20-40) % Monocytes % (Manual) 7 (0-10) % Metamyelocytes % (0-0) % Platelet Estimate Normal (NORMAL) Hypochromasia (manual) Slight Poikilocytosis (manual Slight Anisocytosis (manual) Slight Microcytosis (manual) Slight Macrocytosis (manual) Slight Ovalocytes Slight Jannet Cells Slight PT 20.6 H (9.7-12.2) SECONDS INR 1.8 APTT 39 H (21-34) SECONDS Puncture Site pCO2 (35-45) mm/Hg pO2 (30-55) mm/Hg HCO3 (21-28) mmol/L ABG pH (7.35-7.45) ABG Total CO2 (22-28) mmol/L ABG O2 Saturation (95-98) % ABG Base Excess (-2.0-3.0) mmol/L ABG Hemoglobin (11.7-17.4) g/dL ABG Carboxyhemoglobin (0.5-1.5) % POC ABG HHb (Measured) (0.0-5.0) % ABG Methemoglobin (0.0-3.0) % Eusebio Test VBG pH (7.32-7.43) VBG pCO2 (40-60) mmHg VBG HCO3 mmol/L VBG O2 Sat (Calc) (40-65) % VBG Base Excess (0.0-2.0) mmol/L A-a O2 Difference mm/Hg Respiratory Index Hgb O2 Saturation (95.0-98.0) % Mechanical Rate FiO2 % Tidal Volume PEEP Sodium (132-148) mmol/L Potassium (3.6-5.2) mmol/L Chloride (98-107) mmol/L Carbon Dioxide (22-30) mmol/L Anion Gap (10-20) BUN (9-20) mg/dL Creatinine (0.8-1.5) MG/DL Est GFR ( Amer) Est GFR (Non-Af Amer) POC Glucose (mg/dL) (65-110) mg/dL Random Glucose (75-110) mg/dL Lactic Acid (0.7-2.1) mmol/L Calcium (8.6-10.4) mg/dl Phosphorus (2.5-4.5) mg/dL Magnesium (1.6-2.3) mg/dL Total Bilirubin (0.2-1.3) mg/dL AST (17-59) U/L ALT (21-72) U/L Alkaline Phosphatase (38-126) U/L Total Protein (6.3-8.3) g/dL Albumin (3.5-5.0) g/dL Globulin (2.2-3.9) gm/dL Albumin/Globulin Ratio (1.0-2.1) Stool Leukocytes, Qual Negative (NEGATIVE) C. difficile Ag & Toxin (NEGATIVE) 10/14/16 10/14/16 10/14/16 Range/Units 06:00 05:52 03:23 WBC (4.8-10.8) K/uL RBC (4.40-5.90) Mil/uL Hgb (12.0-18.0) g/dL Hct (35.0-51.0) % MCV (80.0-94.0) fL MCH (27.0-31.0) pg MCHC (33.0-37.0) g/dL RDW (11.5-14.5) % Plt Count (130-400) K/uL MPV (7.2-11.7) fL Neut % (Auto) (50.0-75.0) % Lymph % (Auto) (20.0-40.0) % [place] % (Auto) (0.0-10.0) % Eos % (Auto) (0.0-4.0) % Baso % (Auto) (0.0-2.0) % Neut # (1.8-7.0) K/uL Lymph # (1.0-4.3) K/uL [place] # (0.0-0.8) K/uL Eos # (0.0-0.7) K/uL Baso # (0.0-0.2) K/uL Neutrophils % (Manual) (50-75) % Band Neutrophils % (0-2) % Lymphocytes % (Manual) (20-40) % Monocytes % (Manual) (0-10) % Metamyelocytes % (0-0) % Platelet Estimate (NORMAL) Hypochromasia (manual) Poikilocytosis (manual Anisocytosis (manual) Microcytosis (manual) Macrocytosis (manual) Ovalocytes [place] Cells PT (9.7-12.2) SECONDS INR APTT (21-34) SECONDS Puncture Site Rb pCO2 39 (35-45) mm/Hg pO2 71 L (30-55) mm/Hg HCO3 22.3 (21-28) mmol/L ABG pH 7.36 (7.35-7.45) ABG Total CO2 23.2 (22-28) mmol/L ABG O2 Saturation 94.0 L (95-98) % ABG Base Excess -3.2 L (-2.0-3.0) mmol/L ABG Hemoglobin 12.0 (11.7-17.4) g/dL ABG Carboxyhemoglobin 1.5 (0.5-1.5) % POC ABG HHb (Measured) 5.9 H (0.0-5.0) % ABG Methemoglobin 0.4 (0.0-3.0) % Eusebio Test Na VBG pH (7.32-7.43) VBG pCO2 (40-60) mmHg VBG HCO3 mmol/L VBG O2 Sat (Calc) (40-65) % VBG Base Excess (0.0-2.0) mmol/L A-a O2 Difference 379.0 mm/Hg Respiratory Index 5.3 Hgb O2 Saturation 92.2 L (95.0-98.0) % Mechanical Rate 22 FiO2 70.0 % Tidal Volume 500 PEEP 5 Sodium (132-148) mmol/L Potassium (3.6-5.2) mmol/L Chloride (98-107) mmol/L Carbon Dioxide (22-30) mmol/L Anion Gap (10-20) BUN (9-20) mg/dL Creatinine (0.8-1.5) MG/DL Est GFR ( Amer) Est GFR (Non-Af Amer) POC Glucose (mg/dL) (65-110) mg/dL Random Glucose (75-110) mg/dL Lactic Acid 2.1 (0.7-2.1) mmol/L Calcium (8.6-10.4) mg/dl Phosphorus (2.5-4.5) mg/dL Magnesium (1.6-2.3) mg/dL Total Bilirubin (0.2-1.3) mg/dL AST (17-59) U/L ALT (21-72) U/L Alkaline Phosphatase (38-126) U/L Total Protein (6.3-8.3) g/dL Albumin (3.5-5.0) g/dL Globulin (2.2-3.9) gm/dL Albumin/Globulin Ratio (1.0-2.1) Stool Leukocytes, Qual (NEGATIVE) C. difficile Ag & Toxin Negative (NEGATIVE) 10/14/16 10/14/16 10/14/16 Range/Units 03:23 03:23 03:23 WBC 11.8 H (4.8-10.8) K/uL RBC 2.76 L (4.40-5.90) Mil/uL Hgb 7.6 L (12.0-18.0) g/dL Hct 24.1 L (35.0-51.0) % MCV 87.5 D (80.0-94.0) fL MCH 27.4 (27.0-31.0) pg MCHC 31.4 L (33.0-37.0) g/dL RDW 18.2 H (11.5-14.5) % Plt Count 156 (130-400) K/uL MPV 7.2 (7.2-11.7) fL Neut % (Auto) 97.0 H (50.0-75.0) % Lymph % (Auto) 1.2 L (20.0-40.0) % [place] % (Auto) 1.2 (0.0-10.0) % Eos % (Auto) 0.0 (0.0-4.0) % Baso % (Auto) 0.6 (0.0-2.0) % Neut # 11.4 H (1.8-7.0) K/uL Lymph # 0.1 L (1.0-4.3) K/uL [place] # 0.1 (0.0-0.8) K/uL Eos # 0.0 (0.0-0.7) K/uL Baso # 0.1 (0.0-0.2) K/uL Neutrophils % (Manual) 88 H (50-75) % Band Neutrophils % 8 H (0-2) % Lymphocytes % (Manual) 2 L (20-40) % Monocytes % (Manual) 2 (0-10) % Metamyelocytes % (0-0) % Platelet Estimate Normal (NORMAL) Hypochromasia (manual) Poikilocytosis (manual Moderate Anisocytosis (manual) Moderate Microcytosis (manual) Macrocytosis (manual) Ovalocytes [place] Cells PT 17.9 H (9.7-12.2) SECONDS INR 1.6 APTT 39 H D (21-34) SECONDS Puncture Site pCO2 (35-45) mm/Hg pO2 (30-55) mm/Hg HCO3 (21-28) mmol/L ABG pH (7.35-7.45) ABG Total CO2 (22-28) mmol/L ABG O2 Saturation (95-98) % ABG Base Excess (-2.0-3.0) mmol/L ABG Hemoglobin (11.7-17.4) g/dL ABG Carboxyhemoglobin (0.5-1.5) % POC ABG HHb (Measured) (0.0-5.0) % ABG Methemoglobin (0.0-3.0) % Eusebio Test VBG pH (7.32-7.43) VBG pCO2 (40-60) mmHg VBG HCO3 mmol/L VBG O2 Sat (Calc) (40-65) % VBG Base Excess (0.0-2.0) mmol/L A-a O2 Difference mm/Hg Respiratory Index Hgb O2 Saturation (95.0-98.0) % Mechanical Rate FiO2 % Tidal Volume PEEP Sodium 137 (132-148) mmol/L Potassium 4.8 (3.6-5.2) mmol/L Chloride 98 (98-107) mmol/L Carbon Dioxide 22 (22-30) mmol/L Anion Gap 21 H (10-20) BUN 63 H (9-20) mg/dL Creatinine 6.5 H (0.8-1.5) MG/DL Est GFR ( Amer) 11 Est GFR (Non-Af Amer) 9 POC Glucose (mg/dL) (65-110) mg/dL Random Glucose 100 (75-110) mg/dL Lactic Acid (0.7-2.1) mmol/L Calcium 7.4 L (8.6-10.4) mg/dl Phosphorus 7.9 H (2.5-4.5) mg/dL Magnesium 2.2 (1.6-2.3) mg/dL Total Bilirubin 0.9 (0.2-1.3) mg/dL AST 65 H (17-59) U/L ALT 31 (21-72) U/L Alkaline Phosphatase 200 H D (38-126) U/L Total Protein 6.2 L (6.3-8.3) g/dL Albumin 2.3 L (3.5-5.0) g/dL Globulin 3.9 (2.2-3.9) gm/dL Albumin/Globulin Ratio 0.6 L (1.0-2.1) Stool Leukocytes, Qual (NEGATIVE) C. difficile Ag & Toxin (NEGATIVE) 10/14/16 10/14/16 Range/Units 03:10 02:29 WBC (4.8-10.8) K/uL RBC (4.40-5.90) Mil/uL Hgb (12.0-18.0) g/dL Hct (35.0-51.0) % MCV (80.0-94.0) fL MCH (27.0-31.0) pg MCHC (33.0-37.0) g/dL RDW (11.5-14.5) % Plt Count (130-400) K/uL MPV (7.2-11.7) fL Neut % (Auto) (50.0-75.0) % Lymph % (Auto) (20.0-40.0) % [place] % (Auto) (0.0-10.0) % Eos % (Auto) (0.0-4.0) % Baso % (Auto) (0.0-2.0) % Neut # (1.8-7.0) K/uL Lymph # (1.0-4.3) K/uL [place] # (0.0-0.8) K/uL Eos # (0.0-0.7) K/uL Baso # (0.0-0.2) K/uL Neutrophils % (Manual) (50-75) % Band Neutrophils % (0-2) % Lymphocytes % (Manual) (20-40) % Monocytes % (Manual) (0-10) % Metamyelocytes % (0-0) % Platelet Estimate (NORMAL) Hypochromasia (manual) Poikilocytosis (manual Anisocytosis (manual) Microcytosis (manual) Macrocytosis (manual) Ovalocytes [place] Cells PT (9.7-12.2) SECONDS INR APTT (21-34) SECONDS Puncture Site Na pCO2 (35-45) mm/Hg pO2 41 (30-55) mm/Hg HCO3 (21-28) mmol/L ABG pH (7.35-7.45) ABG Total CO2 (22-28) mmol/L ABG O2 Saturation (95-98) % ABG Base Excess (-2.0-3.0) mmol/L ABG Hemoglobin (11.7-17.4) g/dL ABG Carboxyhemoglobin (0.5-1.5) % POC ABG HHb (Measured) (0.0-5.0) % ABG Methemoglobin (0.0-3.0) % Eusebio Test Na VBG pH 7.35 (7.32-7.43) VBG pCO2 42 (40-60) mmHg VBG HCO3 22.4 mmol/L VBG O2 Sat (Calc) 72.9 H (40-65) % VBG Base Excess -2.4 L (0.0-2.0) mmol/L A-a O2 Difference mm/Hg Respiratory Index Hgb O2 Saturation (95.0-98.0) % Mechanical Rate FiO2 % Tidal Volume PEEP Sodium (132-148) mmol/L Potassium (3.6-5.2) mmol/L Chloride (98-107) mmol/L Carbon Dioxide (22-30) mmol/L Anion Gap (10-20) BUN (9-20) mg/dL Creatinine (0.8-1.5) MG/DL Est GFR ( Amer) Est GFR (Non-Af Amer) POC Glucose (mg/dL) 112 H (65-110) mg/dL Random Glucose (75-110) mg/dL Lactic Acid (0.7-2.1) mmol/L Calcium (8.6-10.4) mg/dl Phosphorus (2.5-4.5) mg/dL Magnesium (1.6-2.3) mg/dL Total Bilirubin (0.2-1.3) mg/dL AST (17-59) U/L ALT (21-72) U/L Alkaline Phosphatase (38-126) U/L Total Protein (6.3-8.3) g/dL Albumin (3.5-5.0) g/dL Globulin (2.2-3.9) gm/dL Albumin/Globulin Ratio (1.0-2.1) Stool Leukocytes, Qual (NEGATIVE) C. difficile Ag & Toxin (NEGATIVE) Laboratory Results - last 24 hr 10/14/16 10/14/16 10/14/16 02:29 03:10 03:23 WBC 11.8 H RBC 2.76 L Hgb 7.6 L Hct 24.1 L MCV 87.5 D MCH 27.4 MCHC 31.4 L RDW 18.2 H Plt Count 156 MPV 7.2 Neut % (Auto) 97.0 H Lymph % (Auto) 1.2 L [place] % (Auto) 1.2 Eos % (Auto) 0.0 Baso % (Auto) 0.6 Neut # 11.4 H Lymph # 0.1 L [place] # 0.1 Eos # 0.0 Baso # 0.1 Neutrophils % (Manual) 88 H Band Neutrophils % 8 H Lymphocytes % (Manual) 2 L Monocytes % (Manual) 2 Metamyelocytes % Platelet Estimate Normal Hypochromasia (manual) Poikilocytosis (manual Moderate Anisocytosis (manual) Moderate Microcytosis (manual) Macrocytosis (manual) Ovalocytes [place] Cells PT INR APTT Puncture Site Na pCO2 pO2 41 HCO3 ABG pH ABG Total CO2 ABG O2 Saturation ABG Base Excess ABG Hemoglobin ABG Carboxyhemoglobin POC ABG HHb (Measured) ABG Methemoglobin Eusebio Test Na VBG pH 7.35 VBG pCO2 42 VBG HCO3 22.4 VBG O2 Sat (Calc) 72.9 H VBG Base Excess -2.4 L A-a O2 Difference Respiratory Index Hgb O2 Saturation Mechanical Rate FiO2 Tidal Volume PEEP Sodium Potassium Chloride Carbon Dioxide Anion Gap BUN Creatinine Est GFR ( Amer) Est GFR (Non-Af Amer) POC Glucose (mg/dL) 112 H Random Glucose Lactic Acid Calcium Phosphorus Magnesium Total Bilirubin AST ALT Alkaline Phosphatase Total Protein Albumin Globulin Albumin/Globulin Ratio Stool Leukocytes, Qual C. difficile Ag & Toxin 10/14/16 10/14/16 10/14/16 03:23 03:23 03:23 WBC RBC Hgb Hct MCV MCH MCHC RDW Plt Count MPV Neut % (Auto) Lymph % (Auto) [place] % (Auto) Eos % (Auto) Baso % (Auto) Neut # Lymph # [place] # Eos # Baso # Neutrophils % (Manual) Band Neutrophils % Lymphocytes % (Manual) Monocytes % (Manual) Metamyelocytes % Platelet Estimate Hypochromasia (manual) Poikilocytosis (manual Anisocytosis (manual) Microcytosis (manual) Macrocytosis (manual) Ovalocytes [place] Cells PT 17.9 H INR 1.6 APTT 39 H D Puncture Site pCO2 pO2 HCO3 ABG pH ABG Total CO2 ABG O2 Saturation ABG Base Excess ABG Hemoglobin ABG Carboxyhemoglobin POC ABG HHb (Measured) ABG Methemoglobin Eusebio Test VBG pH VBG pCO2 VBG HCO3 VBG O2 Sat (Calc) VBG Base Excess A-a O2 Difference Respiratory Index Hgb O2 Saturation Mechanical Rate FiO2 Tidal Volume PEEP Sodium 137 Potassium 4.8 Chloride 98 Carbon Dioxide 22 Anion Gap 21 H BUN 63 H Creatinine 6.5 H Est GFR ( Amer) 11 Est GFR (Non-Af Amer) 9 POC Glucose (mg/dL) Random Glucose 100 Lactic Acid 2.1 Calcium 7.4 L Phosphorus 7.9 H Magnesium 2.2 Total Bilirubin 0.9 AST 65 H ALT 31 Alkaline Phosphatase 200 H D Total Protein 6.2 L Albumin 2.3 L Globulin 3.9 Albumin/Globulin Ratio 0.6 L Stool Leukocytes, Qual C. difficile Ag & Toxin 10/14/16 10/14/16 10/14/16 05:52 06:00 06:00 WBC RBC Hgb Hct MCV MCH MCHC RDW Plt Count MPV Neut % (Auto) Lymph % (Auto) [place] % (Auto) Eos % (Auto) Baso % (Auto) Neut # Lymph # [place] # Eos # Baso # Neutrophils % (Manual) Band Neutrophils % Lymphocytes % (Manual) Monocytes % (Manual) Metamyelocytes % Platelet Estimate Hypochromasia (manual) Poikilocytosis (manual Anisocytosis (manual) Microcytosis (manual) Macrocytosis (manual) Ovalocytes [place] Cells PT INR APTT Puncture Site Rb pCO2 39 pO2 71 L HCO3 22.3 ABG pH 7.36 ABG Total CO2 23.2 ABG O2 Saturation 94.0 L ABG Base Excess -3.2 L ABG Hemoglobin 12.0 ABG Carboxyhemoglobin 1.5 POC ABG HHb (Measured) 5.9 H ABG Methemoglobin 0.4 Eusebio Test Na VBG pH VBG pCO2 VBG HCO3 VBG O2 Sat (Calc) VBG Base Excess A-a O2 Difference 379.0 Respiratory Index 5.3 Hgb O2 Saturation 92.2 L Mechanical Rate 22 FiO2 70.0 Tidal Volume 500 PEEP 5 Sodium Potassium Chloride Carbon Dioxide Anion Gap BUN Creatinine Est GFR ( Amer) Est GFR (Non-Af Amer) POC Glucose (mg/dL) Random Glucose Lactic Acid Calcium Phosphorus Magnesium Total Bilirubin AST ALT Alkaline Phosphatase Total Protein Albumin Globulin Albumin/Globulin Ratio Stool Leukocytes, Qual Negative C. difficile Ag & Toxin Negative 10/14/16 10/14/16 10/14/16 09:44 09:44 09:44 WBC 5.1 D RBC 2.63 L Hgb 7.1 L Hct 23.0 L MCV 87.4 MCH 26.9 L MCHC 30.7 L RDW 19.0 H Plt Count 135 MPV 7.6 Neut % (Auto) 95.9 H Lymph % (Auto) 2.0 L [place] % (Auto) 1.3 Eos % (Auto) 0.3 Baso % (Auto) 0.5 Neut # 4.9 Lymph # 0.1 L [place] # 0.1 Eos # 0.0 Baso # 0.0 Neutrophils % (Manual) 58 Band Neutrophils % 31 H* Lymphocytes % (Manual) 4 L Monocytes % (Manual) 7 Metamyelocytes % Platelet Estimate Normal Hypochromasia (manual) Slight Poikilocytosis (manual Slight Anisocytosis (manual) Slight Microcytosis (manual) Slight Macrocytosis (manual) Slight Ovalocytes Slight [place] Cells Slight PT 20.6 H INR 1.8 APTT 39 H Puncture Site pCO2 pO2 HCO3 ABG pH ABG Total CO2 ABG O2 Saturation ABG Base Excess ABG Hemoglobin ABG Carboxyhemoglobin POC ABG HHb (Measured) ABG Methemoglobin Eusebio Test VBG pH VBG pCO2 VBG HCO3 VBG O2 Sat (Calc) VBG Base Excess A-a O2 Difference Respiratory Index Hgb O2 Saturation Mechanical Rate FiO2 Tidal Volume PEEP Sodium 136 Potassium 4.6 Chloride 97 L Carbon Dioxide 22 Anion Gap 22 H BUN 69 H Creatinine 6.4 H Est GFR ( Amer) 11 Est GFR (Non-Af Amer) 9 POC Glucose (mg/dL) Random Glucose 116 H Lactic Acid Calcium 7.1 L Phosphorus Magnesium 2.1 Total Bilirubin AST ALT Alkaline Phosphatase Total Protein Albumin Globulin Albumin/Globulin Ratio Stool Leukocytes, Qual C. difficile Ag & Toxin 10/14/16 10/14/16 10/14/16 12:42 15:45 15:45 WBC 3.7 L RBC 2.45 L Hgb 6.8 L Hct 21.5 L MCV 87.6 MCH 27.6 MCHC 31.5 L RDW 18.9 H Plt Count 122 L MPV 7.6 Neut % (Auto) 93.5 H Lymph % (Auto) 3.0 L [place] % (Auto) 1.2 Eos % (Auto) 2.2 Baso % (Auto) 0.1 Neut # 3.5 Lymph # 0.1 L [place] # 0.0 Eos # 0.1 Baso # 0.0 Neutrophils % (Manual) 57 Band Neutrophils % 31 H* Lymphocytes % (Manual) 4 L Monocytes % (Manual) 1 Metamyelocytes % 7 H Platelet Estimate Slightly decreased L Hypochromasia (manual) Slight Poikilocytosis (manual Slight Anisocytosis (manual) Slight Microcytosis (manual) Macrocytosis (manual) Ovalocytes Jannet Cells Slight PT 21.6 H INR 1.9 APTT 41 H Puncture Site pCO2 pO2 HCO3 ABG pH ABG Total CO2 ABG O2 Saturation ABG Base Excess ABG Hemoglobin ABG Carboxyhemoglobin POC ABG HHb (Measured) ABG Methemoglobin Eusebio Test VBG pH VBG pCO2 VBG HCO3 VBG O2 Sat (Calc) VBG Base Excess A-a O2 Difference Respiratory Index Hgb O2 Saturation Mechanical Rate FiO2 Tidal Volume PEEP Sodium Potassium Chloride Carbon Dioxide Anion Gap BUN Creatinine Est GFR ( Amer) Est GFR (Non-Af Amer) POC Glucose (mg/dL) 136 H Random Glucose Lactic Acid Calcium Phosphorus Magnesium Total Bilirubin AST ALT Alkaline Phosphatase Total Protein Albumin Globulin Albumin/Globulin Ratio Stool Leukocytes, Qual C. difficile Ag & Toxin 10/14/16 10/14/16 10/14/16 15:45 17:57 21:24 WBC RBC Hgb Hct MCV MCH MCHC RDW Plt Count MPV Neut % (Auto) Lymph % (Auto) [place] % (Auto) Eos % (Auto) Baso % (Auto) Neut # Lymph # [place] # Eos # Baso # Neutrophils % (Manual) Band Neutrophils % Lymphocytes % (Manual) Monocytes % (Manual) Metamyelocytes % Platelet Estimate Hypochromasia (manual) Poikilocytosis (manual Anisocytosis (manual) Microcytosis (manual) Macrocytosis (manual) Ovalocytes Jannet Cells PT 23.4 H INR 2.0 APTT 41 H Puncture Site pCO2 pO2 HCO3 ABG pH ABG Total CO2 ABG O2 Saturation ABG Base Excess ABG Hemoglobin ABG Carboxyhemoglobin POC ABG HHb (Measured) ABG Methemoglobin Eusebio Test VBG pH VBG pCO2 VBG HCO3 VBG O2 Sat (Calc) VBG Base Excess A-a O2 Difference Respiratory Index Hgb O2 Saturation Mechanical Rate FiO2 Tidal Volume PEEP Sodium 138 Potassium 4.7 Chloride 98 Carbon Dioxide 23 Anion Gap 20 BUN 69 H Creatinine 6.9 H Est GFR ( Amer) 10 Est GFR (Non-Af Amer) 8 POC Glucose (mg/dL) 97 Random Glucose 97 Lactic Acid Calcium 6.9 L Phosphorus Magnesium 2.1 Total Bilirubin AST ALT Alkaline Phosphatase Total Protein Albumin Globulin Albumin/Globulin Ratio Stool Leukocytes, Qual C. difficile Ag & Toxin 10/14/16 10/14/16 21:24 21:24 WBC 4.0 L RBC 2.62 L Hgb 7.2 L Hct 23.0 L MCV 87.7 MCH 27.5 MCHC 31.3 L RDW 19.0 H Plt Count 126 L MPV 8.1 Neut % (Auto) 95.5 H Lymph % (Auto) 1.8 L [place] % (Auto) 1.2 Eos % (Auto) 0.8 Baso % (Auto) 0.7 Neut # 3.8 Lymph # 0.1 L [place] # 0.0 Eos # 0.0 Baso # 0.0 Neutrophils % (Manual) Band Neutrophils % Lymphocytes % (Manual) Monocytes % (Manual) Metamyelocytes % Platelet Estimate Hypochromasia (manual) Poikilocytosis (manual Anisocytosis (manual) Microcytosis (manual) Macrocytosis (manual) Ovalocytes Jannet Cells PT INR APTT Puncture Site pCO2 pO2 HCO3 ABG pH ABG Total CO2 ABG O2 Saturation ABG Base Excess ABG Hemoglobin ABG Carboxyhemoglobin POC ABG HHb (Measured) ABG Methemoglobin Eusebio Test VBG pH VBG pCO2 VBG HCO3 VBG O2 Sat (Calc) VBG Base Excess A-a O2 Difference Respiratory Index Hgb O2 Saturation Mechanical Rate FiO2 Tidal Volume PEEP Sodium 137 Potassium 5.1 Chloride 98 Carbon Dioxide 23 Anion Gap 22 H BUN 73 H Creatinine 6.7 H Est GFR ( Amer) 10 Est GFR (Non-Af Amer) 9 POC Glucose (mg/dL) Random Glucose 56 L Lactic Acid Calcium 6.8 L Phosphorus 9.3 H Magnesium 2.2 Total Bilirubin 0.9 AST 44 ALT 27 Alkaline Phosphatase 139 H D Total Protein 6.2 L Albumin 2.4 L Globulin 3.8 Albumin/Globulin Ratio 0.6 L Stool Leukocytes, Qual C. difficile Ag & Toxin Fingerstick Blood Sugar Results: 136 Assessment/Plan - Assessment and Plan (Free Text) Assessment: Pt in [facility],CPR initiated regained pulse continue pressors,current meds
[2016-10-14 23:40] LABS: EOSINOPHIL 1 % (0-4); METAMYELOCYTE 4 % (0-0); MYELOCYTE 1 % (0-0); NEUTROPHIL 53 % (50-75); TOTAL CELLS COUNTED 100
[2016-10-14 23:48] LABS: ACANTHOCYTES SLIGHT
--- NOTE | 2016-10-15 00:18 | CP.PCM.PRO ---
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 [id number] Additional Comments: No Next of KIn
--- NOTE | 2016-10-15 00:21 | CP.PCM.PRO ---
Pronouncement of Note - Clinical Findings Physical Exam: No Response Verbal/Painful Stimuli, Absent Peripheral Pulses{ Carotid & Femoral}, Absent Heart & Breath Sounds, No Pupillary Light Reflex, No Corneal Reflex, Pupils Fixed & Dilated, Absence of Vital Signs - Pronouncement Time Time of Pronouncement of : 00:00 - Notifications Pronouncement Notifications: Atending Notified (unable to contact next of Kin) Salt Grinder Notified: No
[2016-10-15 01:36] VITALS: BP 64/29; PULSE 48; RESP 0
[2016-10-15 01:41] VITALS: TEMP 97.7
--- NOTE | 2016-10-15 10:56 | CP.PCM.DIS ---
Provider - Provider Date of Admission: 10/13/16 23:54 Attending physician: Dilip Warren MD Time Spent in preparation of Discharge (in minutes): 30 Hospital Course - Lab Results Lab Results: Micro Results 10/14/16 06:00 Trachasp Gram Stain - Final 10/14/16 06:00 Trachasp Sputum Culture - Preliminary Gram Negative Cesar Most Recent Lab Values WBC 4.0 K/uL (4.8-10.8) L 10/14/16 21:24 RBC 2.62 Mil/uL (4.40-5.90) L 10/14/16 21:24 Hgb 7.2 g/dL (12.0-18.0) L 10/14/16 21:24 Hct 23.0 % (35.0-51.0) L 10/14/16 21:24 MCV 87.7 fL (80.0-94.0) 10/14/16 21:24 MCH 27.5 pg (27.0-31.0) 10/14/16 21:24 MCHC 31.3 g/dL (33.0-37.0) L 10/14/16 21:24 RDW 19.0 % (11.5-14.5) H 10/14/16 21:24 Plt Count 126 K/uL (130-400) L 10/14/16 21:24 MPV 8.1 fL (7.2-11.7) 10/14/16 21:24 Neut % (Auto) 95.5 % (50.0-75.0) H 10/14/16 21:24 Lymph % (Auto) 1.8 % (20.0-40.0) L 10/14/16 21:24 [place] % (Auto) 1.2 % (0.0-10.0) 10/14/16 21:24 Eos % (Auto) 0.8 % (0.0-4.0) 10/14/16 21:24 Baso % (Auto) 0.7 % (0.0-2.0) 10/14/16 21:24 Neut # 3.8 K/uL (1.8-7.0) 10/14/16 21:24 Lymph # 0.1 K/uL (1.0-4.3) L 10/14/16 21:24 [place] # 0.0 K/uL (0.0-0.8) 10/14/16 21:24 Eos # 0.0 K/uL (0.0-0.7) 10/14/16 21:24 Baso # 0.0 K/uL (0.0-0.2) 10/14/16 21:24 Neutrophils % (Manual) 53 % (50-75) 10/14/16 21:24 Band Neutrophils % 38 % (0-2) H* 10/14/16 21:24 Lymphocytes % (Manual) 2 % (20-40) L 10/14/16 21:24 Monocytes % (Manual) 1 % (0-10) 10/14/16 21:24 Eosinophils % (Manual) 1 % (0-4) 10/14/16 21:24 Metamyelocytes % 4 % (0-0) H 10/14/16 21:24 Myelocytes % 1 % (0-0) H 10/14/16 21:24 Platelet Estimate Slightly decreased (NORMAL) L 10/14/16 21:24 Hypochromasia (manual) Slight 10/14/16 21:24 Poikilocytosis (manual Slight 10/14/16 21:24 Anisocytosis (manual) Slight 10/14/16 21:24 Microcytosis (manual) Slight 10/14/16 09:44 Macrocytosis (manual) Slight 10/14/16 09:44 Ovalocytes Slight 10/14/16 09:44 [place] Cells Slight 10/14/16 15:45 Acanthocytes (Spur) Slight 10/14/16 21:24 PT 23.4 SECONDS (9.7-12.2) H 10/14/16 21:24 INR 2.0 10/14/16 21:24 APTT 41 SECONDS (21-34) H 10/14/16 21:24 Puncture Site Rb 10/14/16 05:52 pCO2 39 mm/Hg (35-45) 10/14/16 05:52 pO2 71 mm/Hg (80-100) L 10/14/16 05:52 HCO3 22.3 mmol/L (21-28) 10/14/16 05:52 ABG pH 7.36 (7.35-7.45) 10/14/16 05:52 ABG Total CO2 23.2 mmol/L (22-28) 10/14/16 05:52 ABG O2 Saturation 94.0 % (95-98) L 10/14/16 05:52 ABG Base Excess -3.2 mmol/L (-2.0-3.0) L 10/14/16 05:52 ABG Hemoglobin 12.0 g/dL (11.7-17.4) 10/14/16 05:52 ABG Carboxyhemoglobin 1.5 % (0.5-1.5) 10/14/16 05:52 POC ABG HHb (Measured) 5.9 % (0.0-5.0) H 10/14/16 05:52 ABG Methemoglobin 0.4 % (0.0-3.0) 10/14/16 05:52 Eusebio Test Na 10/14/16 05:52 VBG pH 7.35 (7.32-7.43) 10/14/16 02:29 VBG pCO2 42 mmHg (40-60) 10/14/16 02:29 VBG HCO3 22.4 mmol/L 10/14/16 02:29 VBG O2 Sat (Calc) 72.9 % (40-65) H 10/14/16 02:29 VBG Base Excess -2.4 mmol/L (0.0-2.0) L 10/14/16 02:29 A-a O2 Difference 379.0 mm/Hg 10/14/16 05:52 Respiratory Index 5.3 10/14/16 05:52 Hgb O2 Saturation 92.2 % (95.0-98.0) L 10/14/16 05:52 Mechanical Rate 22 10/14/16 05:52 FiO2 70.0 % 10/14/16 05:52 Tidal Volume 500 10/14/16 05:52 PEEP 5 10/14/16 05:52 Crit Value Called To Dr bateman 10/13/16 22:55 Crit Value Called By Jairon anaya 10/13/16 22:55 Crit Value Read Back Y 10/13/16 22:55 Blood Gas Notified Time 2300 10/13/16 22:55 Sodium 137 mmol/L (132-148) 10/14/16 21:24 Potassium 5.1 mmol/L (3.6-5.2) 10/14/16 21:24 Chloride 98 mmol/L (98-107) 10/14/16 21:24 Carbon Dioxide 23 mmol/L (22-30) 10/14/16 21:24 Anion Gap 22 (10-20) H 10/14/16 21:24 BUN 73 mg/dL (9-20) H 10/14/16 21:24 Creatinine 6.7 MG/DL (0.8-1.5) H 10/14/16 21:24 Est GFR ( Amer) 10 10/14/16 21:24 Est GFR (Non-Af Amer) 9 10/14/16 21:24 POC Glucose (mg/dL) 97 mg/dL (65-110) 10/14/16 17:57 Random Glucose 56 mg/dL (75-110) L 10/14/16 21:24 Hemoglobin A1c 5.4 % (4.2-6.5) 10/13/16 00:09 Lactic Acid 2.1 mmol/L (0.7-2.1) 10/14/16 03:23 Calcium 6.8 mg/dl (8.6-10.4) L 10/14/16 21:24 Phosphorus 9.3 mg/dL (2.5-4.5) H 10/14/16 21:24 Magnesium 2.2 mg/dL (1.6-2.3) 10/14/16 21:24 Total Bilirubin 0.9 mg/dL (0.2-1.3) 10/14/16 21:24 AST 44 U/L (17-59) 10/14/16 21:24 ALT 27 U/L (21-72) 10/14/16 21:24 Alkaline Phosphatase 139 U/L (38-126) H D 10/14/16 21:24 Total Creatine Kinase 34 U/L (55-170) L 10/13/16 22:54 CK-MB (Mass) 4.31 ng/mL (0.0-3.38) H 10/13/16 22:54 Troponin I < 0.0120 ng/mL (0.00-0.120) 10/13/16 22:54 Troponin I, Quant < 0.0120 ng/mL (0.00-0.120) 10/13/16 22:54 NT-Pro-B Natriuret Pep 001477 pg/mL (0-900) H 10/13/16 22:54 Total Protein 6.2 g/dL (6.3-8.3) L 10/14/16 21:24 Albumin 2.4 g/dL (3.5-5.0) L 10/14/16 21:24 Globulin 3.8 gm/dL (2.2-3.9) 10/14/16 21:24 Albumin/Globulin Ratio 0.6 (1.0-2.1) L 10/14/16 21:24 Triglycerides 56 mg/dL (0-149) 10/13/16 22:54 Cholesterol < 50 mg/dL (0-199) 10/13/16 22:54 LDL Cholesterol Direct < 30 mg/dL (0-129) 10/13/16 22:54 HDL Cholesterol 14 mg/dL (30-70) L 10/13/16 22:54 Stool Leukocytes, Qual Negative (NEGATIVE) 10/14/16 06:00 C. difficile Ag & Toxin Negative (NEGATIVE) 10/14/16 06:00 Blood Type O POSITIVE 10/13/16 23:01 Antibody Screen Negative 10/13/16 23:01 - Hospital Course Hospital Course: patient became bradycardicfollowed by PEA CPR initiated pt today Discharge Exam - Head Exam Head Exam: ATRAUMATIC, NORMAL INSPECTION, NORMOCEPHALIC Discharge Plan - Follow Up Plan Condition: CRITICAL Disposition: WITH WITHOUT AUTOPSY
[2016-10-25 00:15] VITALS: O2SAT 100
--- NOTE | 2016-11-04 10:51 | PQF GENQUE ---
This form is a permanent part of the medical record Clarification of your documentation is requested to better reflect the severity of illness and intensity of treatment of your patient. PLEASE CLARIFY AND DOCUMENT THE FINAL DIAGNOSIS ON THIS PATIENT . Indicators present [X] Specify: [PATIENT WITH MULTIPLE MEDICAL PROBLEMS.] [] Specify: [] [] Specify: [] [] Specify: [] Location in the medical record that reflects the above clinical findings: [] Treatment Provided: [] PHYSICIAN'S RESPONSE Based on your medical judgment of the clinical indicators outlined above please clarify the following: [] Practitioner response [] If unable to determine, please check the box, sign and date. Present On Admission (POA) Indicator: [] Present at the time of admission [] Not present at the time of admission [] Clinically Undetermined In responding to this query, please exercise your independent professional judgment. The fact that a question is asked does not imply that any particular answer is desired or expected. Thank you for your clarification on this documentation. If you have any questions please call:[KYLEIGH GEE ] * Thank you, [ ] clothes separator AUBREE
--- NOTE | 2016-11-05 12:24 | HP ---
CHIEF COMPLAINT: Prolapse. HISTORY OF PRESENT ILLNESS: This is a 56-year-old [place] male, well-known to me, with history of cor onary artery disease status post CABG, chronic heavy smoker, peripheral arterial disease with bilater al lower extremity ulcers, and CKD on hemodialysis, hypertension, hyperlipidemia who is ____ senior care. The patient was recently discharged from [facility] where he was treated for p leural effusion, empyema, and the patient was taking medication on the day of admission. He was walk ing in front of the nursing station on the 3rd floor at [facility], and he collapsed right in fron t of the senior care, and he went into asystole. CPR was started immediately by senior care staff, and they continued CPR for 15 minutes and then ALS arrived, and full ACLS protocol was followed. Th e patient remained unconscious, unresponsive ____ intubated, pulse was regained, and he is admitted t o ICU. There are no further details available. His pupils are sluggish. He has no involuntary ____ movements. According to senior care staff who spoke to me, there is no history of seizure-like act ivity. All they know is he kind of tripped, he fell down, and when he did not wake up, they did not feel the pulse, and they started CPR. No prior chest pain, shortness of breath, dizziness. PAST MEDICAL HISTORY: CAD, CABG, type 2 diabetes, hypertension, hyperlipidemia, end-stage renal dise ase on hemodialysis. SOCIAL HISTORY: He is smoker, non-EtOH user. PHYSICAL EXAMINATION: GENERAL: Middle-aged male who is on the ventilator in ICU. No involuntary movements, unresponsive, not on any sedation. VITAL SIGNS: Blood pressure is 64/29, pulse 48. Respiratory rate is 12, on ventilator. Temperature 97.7. SKIN: No rash. No purpura. No petechia. HEENT: Atraumatic, normocephalic. Orally intubated, pale. NECK: Supple. LUNGS: Bilateral transmitted breath sounds. CARDIOVASCULAR: S1, S2 regular. ABDOMEN: Soft, nontender. Bowel sounds are positive. EXTREMITIES: No clubbing, cyanosis, or edema. CENTRAL NERVOUS SYSTEM: Unresponsive. ASSESSMENT: 1. ____, rule out acute myocardial infarction, acute coronary syndrome. 2. Anemia of chronic disease. 3. Type 2 diabetes on insulin. 4. Hypertension. 5. Coronary artery disease, status post coronary artery bypass graft. Dilip Warren MD cc: [phone] TT: 11/05/2016 12:23:27 jn
== END 2016-10-15 | DRG 871 ==
LOC: C.ER 22:41 → C.9E 23:54 → C.9I 10-14 00:28
PROVIDERS: ADMIT Internal Medicine; ATTEND Internal Medicine
PROC: 0BH17EZ Insertion of Endotracheal Airway into Trachea, Via Natural or Artificial Opening (ICD-10-PCS; principal; 2016-10-13)
PROC: 5A1945Z Respiratory Ventilation, 24-96 Consecutive Hours (ICD-10-PCS; 2016-10-13)
DX: A41.9 Sepsis, unspecified organism (principal); J18.9 Pneumonia, unspecified organism; J96.00 Acute respiratory failure, unspecified whether with hypoxia or hypercapnia; J91.8 Pleural effusion in other conditions classified elsewhere; N18.6 End stage renal disease; I12.0 Hypertensive chronic kidney disease with stage 5 chronic kidney disease or end stage renal disease; E11.22 Type 2 diabetes mellitus with diabetic chronic kidney disease; D63.1 Anemia in chronic kidney disease; S02.2XXA Fracture of nasal bones, initial encounter for closed fracture; Z99.2 Dependence on renal dialysis; Z79.4 Long term (current) use of insulin; Z68.21 Body mass index [BMI] 21.0-21.9, adult; I25.10 Atherosclerotic heart disease of native coronary artery without angina pectoris; Z95.1 Presence of aortocoronary bypass graft; Z89.412 Acquired absence of left great toe; E11.610 Type 2 diabetes mellitus with diabetic neuropathic arthropathy; F17.200 Nicotine dependence, unspecified, uncomplicated; W01.0XXA Fall on same level from slipping, tripping and stumbling without subsequent striking against object, initial encounter; Z51.5 Encounter for palliative care; Z66 Do not resuscitate